=== PATIENT | male | born 1995 | race Caucasian/White ===

== ENCOUNTER 2018-07-05 18:06 | Emergency (ER) | payer OTHER, SELFPAY ==
[2018-07-05 18:17] VITALS: BP 122/77; PULSE 79; RESP 16; TEMP 36.4; O2SAT 99
--- NOTE | 2018-07-05 18:28 | W.ED.GENAD ---
Discharge Plan Disposition Patient Disposition: HOME Condition: Stable Discharge Details Chief Complaint: Orthopedic Clinical Impression: Strain of right rotator cuff capsule Primary Care Provider: Merlyn Blas ED Provider: Mc Ziegler Home Meds and New Rx's Prescriptions: New cyclobenzaprine 10 mg tablet 10 mg PO TID PRN (Reason: pain, severe) Qty: 20 RF: 0 Discontinued ketorolac 10 MG tablet 10 mg PO Q6H PRN MDD 4 Qty: 15 RF: 0 Discharge Instructions Instructions: Cyclobenzaprine (By mouth), Shoulder Sprain (ED) Additional Instructions: call orthopedics for an appointment as an outpatient take 1000mg tylenol and 600mg ibuprofen for pain as needed if you have fevers or severe worsening of pain return to the emergency department Referrals: Artur Davis MD [ [facility] STAFF PHYSICIAN] - Discharge Data Discharge Physician: Mc Ziegler Medical Decision Making MDM Narrative Medical decision making narrative: 23 yo male who denies chronic medical problems who comes in with right shoulder pain. He was at work 2 or so weeks ago and was lifting a heavy object off shelf above his head when it caused his arm to fall to the side and strain his shoulder. Was dx'd with shoulder/muscle strain at [facility] that day and since then hasn't been moving his shoulder much due to discomfort. Given his lack of visible deformity, symmetric with left shoulder and no significant trauma do not feel fracture or dislocation likely so don't feel xray indicated. I suspect given patient not being able to lift shoulder above 90 degrees in abduction that he likely has a rotator cuff injury vs adhesive capsulitis. Will have him f/u with orthopedics and return precautions given Differential Diagnosis rotator cuff injury, adhesive capsulitis HPI - General Adult General Mode of arrival: ambulatory. Date/Time Provider Initiated Documentation: 07/05/18 18:22. Limitations to Documentation: no limitations. Information obtained by: patient. History of Present Illness 23 year old M presents to the emergency department with the chief complaint of right shoulder pain, described as moderate, with intensity rated at 4. Quality is described as aching, and is localized to the right and upper extremity. Patient reports no radiation. Patient started experiencing this week(s) (2) and it has been constant. Rest improves symptom(s), Movement worsens symptoms . Patient notes no other symptoms.. Patient did receive the following treatments prior to arrival, NSAID Related Data Previous Rx's Medication Instructions Recorded cyclobenzaprine 10 mg PO TID PRN #20 tab 07/05/18 Allergies Allergy/AdvReac Type Severity Reaction Status Date / Time Penicillins Allergy Unverified 05/31/18 14:55 General Stated Complaint: Orthopedic CAITLIN: 4 Review of Systems Review of Systems All systems reviewed & are unremarkable except as noted in HPI and below Constitutional Denies chills, Denies fever(s) and Denies weakness Eyes Patient Denies loss of vision ENT Denies change in voice Cardiovascular Denies chest pain and Denies dyspnea Respiratory Denies dyspnea Gastrointestinal Denies abdominal pain, Denies nausea and Denies vomiting Genitourinary Denies dysuria Musculoskeletal Denies joint swelling Integumentary/Breasts Denies rash Neurologic Denies loss of vision and Denies weakness Psychiatric Denies depression Endocrine Denies cold intolerance and Denies heat intolerance Allergic/Immunologic Reports urticaria PFSH Social History Smoking/Tobacco Use Status: Former Tobacco Use Exam Const General: no acute distress Orientation: alert HENMT Head: normal to inspection Ears: external ears normal General nose exam: external nose normal Mouth: moist mucous membranes Eyes General: appearance normal, both eyes and all related structures Neck Neck: normal visual inspection Resp Effort & Inspection: normal respiratory effort and able to speak in complete sentences Cardio Rate: regular rate Skin General skin exam: no rashes or lesions noted Neuro General: alert and oriented x3 Extrem General: normal to inspection, normal capillary refill and other (right shoulder limited rom due to pain, no palpable or visible deformity and symmetrical with left shoulder, no significant pain with palpation, intact distal sensation and pulses) Psych Mental Status: mental status grossly normal Course Vital Signs Temperature 36.4 C L 07/05/18 18:17 Pulse 79 07/05/18 18:17 Respiratory Rate 16 07/05/18 18:17 Blood Pressure 122/77 07/05/18 18:17 Pulse Oximetry 99 07/05/18 18:17 Temperature 36.4 C L 07/05/18 18:17 Pulse 79 07/05/18 18:17 Respiratory Rate 16 07/05/18 18:17 Blood Pressure 122/77 07/05/18 18:17 Pulse Oximetry 99 07/05/18 18:17
--- NOTE | 2018-07-05 18:33 | ED.GENADUL_ITS ---
Discharge Plan Disposition Patient Disposition: HOME Condition: Stable Discharge Details Chief Complaint: Orthopedic Clinical Impression: Strain of right rotator cuff capsule Primary Care Provider: Merlyn Blas ED Provider: Mc Ziegler Home Meds and New Rx's Prescriptions: New cyclobenzaprine 10 mg tablet 10 mg PO TID PRN (Reason: pain, severe) Qty: 20 RF: 0 Discontinued ketorolac 10 MG tablet 10 mg PO Q6H PRN MDD 4 Qty: 15 RF: 0 Discharge Instructions Instructions: Cyclobenzaprine (By mouth), Shoulder Sprain (ED) Additional Instructions: call orthopedics for an appointment as an outpatient take 1000mg tylenol and 600mg ibuprofen for pain as needed if you have fevers or severe worsening of pain return to the emergency department Referrals: Artur Davis MD [ [facility] STAFF PHYSICIAN] - Discharge Data Discharge Physician: Mc Ziegler Medical Decision Making MDM Narrative Medical decision making narrative: 23 yo male who denies chronic medical problems who comes in with right shoulder pain. He was at work 2 or so weeks ago and was lifting a heavy object off shelf above his head when it caused his arm to fall to the side and strain his shoulder. Was dx'd with shoulder/muscle strain at [facility] that day and since then hasn't been moving his shoulder much due to discomfort. Given his lack of visible deformity , symmetric with left shoulder and no significant trauma do not feel fracture or dislocation likely so don't feel xray indicated. I suspect given patient not being able to lift shoulder above 90 degrees in abduction that he likely has a rotator cuff injury vs adhesive capsulitis. Will have him f/u with orthopedics and return precautions given Differential Diagnosis rotator cuff injury, adhesive capsulitis HPI - General Adult General Mode of arrival: ambulatory . Date/Time Provider Initiated Documentation: 07/05/18 18:22 . Limitations to Documentation: no limitations . Information obtained by: patient . History of Present Illness 23 year old M presents to the emergency department with the chief complaint of right shoulder pain, described as moderate, with intensity rated at 4. Quality is described as aching, and is localized to the right and upper extremity. Patient reports no radiation. Patient started experiencing this week(s) (2) and it has been constant. Rest improves symptom(s), Movement worsens symptoms . Patient notes no other symptoms.. Patient did receive the following treatments prior to arrival, NSAID Related Data Previous Rx's Medication Instructions Recorded cyclobenzaprine 10 mg PO TID PRN #20 tab 07/05/18 Allergies Allergy/AdvReac Type Severity Reaction Status Date / Time Penicillins Allergy Unverified 05/31/18 14:55 General Stated Complaint: Orthopedic CAITLIN: 4 Review of Systems Review of Systems All systems reviewed & are unremarkable except as noted in HPI and below Constitutional Denies chills, Denies fever(s) and Denies weakness Eyes Patient Denies loss of vision ENT Denies change in voice Cardiovascular Denies chest pain and Denies dyspnea Respiratory Denies dyspnea Gastrointestinal Denies abdominal pain, Denies nausea and Denies vomiting Genitourinary Denies dysuria Musculoskeletal Denies joint swelling Integumentary/Breasts Denies rash Neurologic Denies loss of vision and Denies weakness Psychiatric Denies depression Endocrine Denies cold intolerance and Denies heat intolerance Allergic/Immunologic Reports urticaria PFSH Social History Smoking/Tobacco Use Status: Former Tobacco Use Exam Const General: no acute distress Orientation: alert HENMT Head: normal to inspection Ears: external ears normal General nose exam: external nose normal Mouth: moist mucous membranes Eyes General: appearance normal, both eyes and all related structures Neck Neck: normal visual inspection Resp Effort & Inspection: normal respiratory effort and able to speak in complete sentences Cardio Rate: regular rate Skin General skin exam: no rashes or lesions noted Neuro General: alert and oriented x3 Extrem General: normal to inspection, normal capillary refill and other (right shoulder limited rom due to pain, no palpable or visible deformity and symmetrical with left shoulder, no significant pain with palpation, intact distal sensation and pulses) Psych Mental Status: mental status grossly normal Course Vital Signs Temperature 36.4 C L 07/05/18 18:17 Pulse 79 07/05/18 18:17 Respiratory Rate 16 07/05/18 18:17 Blood Pressure 122/77 07/05/18 18:17 Pulse Oximetry 99 07/05/18 18:17 Temperature 36.4 C L 07/05/18 18:17 Pulse 79 07/05/18 18:17 Respiratory Rate 16 07/05/18 18:17 Blood Pressure 122/77 07/05/18 18:17 Pulse Oximetry 99 07/05/18 18:17
[2018-07-05 18:35] VITALS: BP 122/77; PULSE 79; RESP 16; TEMP 36.4; O2SAT 99
== END 2018-07-05 18:39 | disposition home or self-care (01) ==
PROVIDERS: Emergency Provider Emergency Medicine; PCP Family Medicine
DX: S46.011A Strain of muscle(s) and tendon(s) of the rotator cuff of right shoulder, initial encounter (principal); X50.0XXA Overexertion from strenuous movement or load, initial encounter; Y99.0 Civilian activity done for income or pay
CPT/HCPCS: 99283; L3650

== ENCOUNTER 2019-06-12 06:32 | Emergency (ER) | payer SELFPAY ==
[2019-06-12] VITALS (22 sets, daily range): BP systolic 108–136; BP diastolic 62–86; PULSE 48–63; RESP 16–22; TEMP 36.8; O2SAT 96–99
[2019-06-12] MEDS: Ketorolac 30 MG/ML VIAL IVP (06:50)
[2019-06-12] MEDS: Ondansetron 4 MG/2 ML VIAL IVP (06:50)
[2019-06-12] MEDS: HYDROmorphone 2 MG/ML VIAL 1 MG IVP (07:14)
--- NOTE | 2019-06-12 07:21 | W.ED.GENAD ---
Discharge Plan Disposition Patient Disposition: HOME Condition: Improving Discharge Details Chief Complaint: FlankPain Clinical Impression: Nephrolithiasis Primary Care Provider: Merlyn Blas ED Provider: Nadja Dupont Home Meds and New Rx's Prescriptions: New tamsulosin [Flomax] 0.4 mg capsule 0.4 mg PO DAILY Qty: 7 RF: 0 oxycodone 5 mg tablet 5 mg PO Q6H PRN (Reason: pain) Qty: 10 RF: 0 promethazine 25 mg tablet 25 mg PO QID PRN (Reason: nausea and vomiting) Qty: 10 RF: 0 Discharge Instructions Instructions: Kidney Stones (ED) Additional Instructions: Continue to encourage hydration. Tylenol and ibuprofen as needed for discomfort. Please take Flomax as prescribed to help promote passage of stone. You may take the promethazine as prescribed to help with nausea. Please augment the Tylenol and ibuprofen oxycodone if this is insufficient in relieving her discomfort. Please do not drive while taking these medications. If you develop fever/chills, increased pain, difficulty urinating or other new/worsening symptoms please seek care urgently once again. Please call urology to schedule follow-up appointment. Stand Alone Forms: Work Release Referrals: Salvador Erickson MD [ [facility] STAFF PHYSICIAN] - Merlyn Blas MD [Primary Care Provider] - Discharge Data Discharge Date/Time-TO BE ENTERED AT DEPARTURE: 06/12/19 10:59 Medical Decision Making Patient is a 24-year-old male presenting today with chief complaint of right flank pain. He reports that he has had kidney stones historically and feels that this is a recurrence of this. Last was treated for nephrolithiasis in February of last year. Patient has been seen by Dr. Erickson. He denies any fevers or chills. No recent dietary changes. Does report that he is getting next week and has been under increased stress and believes that he has had diminished fluid intake. He reports that he has had no penile discharge. Does not have any pain in his testicles. Denies any change in bowel habits. Is not noted hematuria. States the pain came on today after urinating when he first woke this morning. No recent travel. No recent antibiotics. No previous abdominal surgeries. On exam, he appears uncomfortable, is writhing and holding his right flank. He has no abdominal pain elicited with palpation. He does have severe right CVA tenderness. Plan to obtain renal ultrasound. Patient given IV Toradol with only minimal relief, this is augmented with Dilaudid. With the patient's history, will give first dose of Flomax as well. US reviewed, slight right hydronephrosis. They see a intrarenal stone. Unable to visual stone in the ureter. Urinary jet on the left, none on the right. Radiologist recommended f/u with urologist. UA concerning for RBC. Negative nitrite, negative leukocyte esterase. Will consult with Dr. Erickson. Consulted with Dr. Erickson, discussed the CT. He advised holding off at this time, treat per typical. Advised that if he is still in discomfort next week, he call the office for appointment. Discussed this plan with the patient. I encouraged hydration. He is hydrating well here. The Phenergan seemed to have been of most benefit for the patient. We will prescribe this patient to go home with. Also continue with him on Flomax. Encouraged to continue with Tylenol and ibuprofen as needed for discomfort. May augment this with oxycodone as prescribed. This is worked well for him historically. He was given strict return precautions, particular signs of infection. He will not drive while taking the oxycodone. Work note was given at his request. He will contact urology to schedule follow-up appointment. All his questions and concerns were addressed and he is in agreement with this plan. HPI General Mode of arrival: ambulatory. Date/Time Provider Initiated Documentation: 06/12/19 07:14. Limitations to Documentation: no limitations. Information obtained by: patient and RN notes reviewed. History of Present Illness 24 year old M presents to the emergency department with the chief complaint of right flank pain, described as severe and similar to prior episodes, Quality is described as stabbing, and is localized to the back. Patient abdomen. Patient started experiencing this hour(s) (1) and it has been constant. No relieving factors improve symptom(s), No exacerbating factors reported . Patient notes loss of appetite and nausea/vomiting; denies chest pain, cough, diaphoresis, fever/chills, headaches, rash, shortness of breath and weakness. Patient did receive the following treatments prior to arrival, none Related Data Home Medications Medication Instructions Recorded Confirmed oxycodone 5 mg PO Q6H PRN #10 tab 06/12/19 promethazine 25 mg PO QID PRN #10 tab 06/12/19 tamsulosin [Flomax] 0.4 mg PO DAILY #7 cap 06/12/19 Previous Rx's Medication Instructions Recorded oxycodone 5 mg PO Q6H PRN #10 tab 06/12/19 promethazine 25 mg PO QID PRN #10 tab 06/12/19 tamsulosin [Flomax] 0.4 mg PO DAILY #7 cap 06/12/19 Allergies Allergy/AdvReac Type Severity Reaction Status Date / Time Penicillins Allergy Unverified 06/12/19 06:39 General Stated Complaint: FlankPain CAITLIN: 3 Review of Systems Constitutional Reports as per HPI, Denies chills, Denies fatigue, Denies fever(s) and Denies headache(s) ENT Denies headache(s) Cardiovascular Reports as per HPI, Denies chest pain and Denies dyspnea Respiratory Reports as per HPI, Denies cough and Denies dyspnea Gastrointestinal Reports as per HPI Genitourinary Reports as per HPI, Denies genital lesions, Denies genital pain, Reports flank pain, Denies urinary frequency, Denies urinary hesitancy, Denies urinary incontinence and Denies urinary urgency Musculoskeletal Reports as per HPI and Denies back pain Integumentary/Breasts Reports as per HPI and Denies rash Neurologic Reports as per HPI and Denies headache(s) Endocrine Denies fatigue [facility] Social History Smoking/Tobacco Use Status: Former Tobacco Use Drug use: Never Do you feel safe at home: Yes Do you feel safe in your relationship?: Yes Exam Const General: cooperative, healthy appearing, uncomfortable (Patient appears uncomfortable, holding right flank), no acute distress and well developed Nutritional Appearance: average body habitus and well nourished Orientation: alert and awake HENMT Head: normal to inspection Mouth: moist mucous membranes Resp Effort & Inspection: normal respiratory effort, able to speak in complete sentences and no respiratory distress Auscultation: clear to auscultation bilaterally, no rales, no rhonchi and no wheezes Cardio Rate: regular rate Rhythm: regular rhythm Heart Sounds: S1 normal and S2 normal GI Inspection: normal to inspection, no edema and non-distended Palpation: soft, no hepatosplenomegaly, not firm, no guarding, not rigid and nontender Percussion: normal to percussion Auscultation: normal bowel sounds Back/Spine/Pelvis Back: CVA tenderness (Right side) Skin General skin exam: no rashes or lesions noted Trauma: no lacerations or abrasions Neuro General: alert and awake Cognition: normal cognition Speech: speech normal Gait: normal gait Psych Appearance: grossly normal and well kempt Mental Status: mental status grossly normal Speech and Movement: speech and movement normal Course Vital Signs Temperature 36.8 C 06/12/19 06:36 Pulse 57 L 06/12/19 06:36 Respiratory Rate 22 06/12/19 06:36 Blood Pressure 133/84 06/12/19 06:36 Pulse Oximetry 98 06/12/19 06:36 Temperature 36.8 C 06/12/19 06:36 Temperature Source Tympanic 06/12/19 06:36 Pulse 57 L 06/12/19 06:36 Respiratory Rate 22 06/12/19 06:36 Respiratory Effort 06/12/19 06:40 Blood Pressure 133/84 06/12/19 06:36 Pulse Oximetry 98 06/12/19 06:36 Pain Level 9 06/12/19 06:40
[2019-06-12 07:32] LABS: Abs Immature Grans 0.01 k/cumm (0.0-0.09); Absolute Basophil Count 0.04 k/cumm (0.0-0.2); Absolute Eosinophil Count 0.18 k/cumm (0.0-0.7); Absolute Monocyte Count 0.48 k/cumm (0.11-0.7); Absolute Neutrophil Count 3.01 k/cumm (1.2-6.7); Basophils % 0.6; Eosinophils % 2.7; HCT 45.4 % (40.0-50.0); HGB 15.3 g/dL (13.5-17.5); Immature Grans % 0.1; Lymphocytes % 44.6; Mean Corp. HGB Concentration 33.7 g/dL (32.0-36.0); Mean Corpuscular Hemoglobin 30.5 pg (27.0-33.0); Mean Corpuscular Volume 90.6 fL (80-95); Mean Platelet Volume 11.2 fL (8.0-11.0); Monocytes % 7.1; Neutrophils % 44.9; Platelet Count 314 x1000/uL (130-400); RBC 5.01 m/cumm (4.50-6.00); RBC Distribution Width 12.6 % (11.8-14.1); White Blood Cell Count 6.72 k/cumm (4.4-10.8)
[2019-06-12] MEDS: Tamsulosin 0.4 MG CAPCR PO (07:37)
[2019-06-12] MEDS: Normal Saline 1,000 ML 1000 ML IV (07:37)
[2019-06-12 07:47] LABS: ALT 21 U/L (12-78); AST 10 U/L (15-37); Albumin 4.6 g/dL (3.4-5.0); Alkaline Phosphatase 80 U/L (46-116); Anion Gap 9.6 mmol/L (3-11); BUN 14 mg/dL (7-18); Bilirubin, Total 0.5 mg/dL (0.2-1.0); CO2 30.4 mmol/L (21.0-32.0); CREATININE 1.13 mg/dL (0.70-1.30); Calcium 9.2 mg/dL (8.5-10.1); Chloride 104 mmol/L (98-107); Glucose 103 mg/dL (70-100); Potassium 3.6 mmol/L (3.5-5.1); Sodium 144 mmol/L (136-145); Total Protein 7.7 g/dL (6.4-8.2)
--- NOTE | 2019-06-12 08:22 | DI.US_ITS ---
SYMPTOM/DIAGNOSIS: H/O STONES, RT FLANK PAIN RENAL ULTRASOUND: 06/12 The kidneys are normal in size and shape. There is an apparent intrarenal calculus on the right in the upper pole collecting system. There is suggestion of mild generalized right hydronephrosis. No right ureteral jet identified in the bladder and the findings raise the possibility of an obstructing ureteral stone as well. Left kidney shows normal collecting system, no left nephrolithiasis seen. Urinary bladder unremarkable in appearance. 30 cc in the urinary bladder, the patient was unable to void further. CONCLUSION: 1. Right nephrolithiasis 2. Question mild right hydronephrosis, low grade right ureteral obstruction may be present. Appropriate clinical follow up recommended and if the findings to not resolve additional evaluation with CT urogram would be suggested.
[2019-06-12] MEDS: HYDROmorphone 2 MG/ML VIAL 0.25 MG IVP (09:08)
[2019-06-12 09:33] LABS: Bilirubin Negative (Negative); Blood Moderate (Negative); Clarity Clear (Clear); Glucose Negative (Negative); Ketones Negative (Negative); Leukocyte Esterase Negative (Negative); Nitrite Negative (Negative); Urobilinogen 0.2 EU/dL (Up TO 0.2); pH 7.5 (5-8)
[2019-06-12 09:54] LABS: Bacteria Rare HPF (Negative); C & S Indicated? No; Casts Negative LPF (Negative); Crystals Negative HPF (Negative); Epithelial Cells Rare HPF (Negative); Mucus Moderate (Negative); RBC >50 (0-2); WBC 0-2 HPF (0-5)
== END 2019-06-12 10:59 | disposition home or self-care (01) ==
PROVIDERS: Emergency Provider Physician Assistant; PCP Family Medicine
DX: N20.0 Calculus of kidney (principal)
CPT/HCPCS: 36415; 76770; 80053; 96361; 96365; 96375; 96376; 99284; 81003; 81015; 85025; J1885; J2405

== ENCOUNTER 2019-09-21 08:24 | Emergency (ER) | payer SELFPAY ==
[2019-09-21 08:27] VITALS: BP 129/68; PULSE 72; RESP 14; TEMP 36.4; O2SAT 99
--- NOTE | 2019-09-21 08:51 | W.ED.GENAD ---
Discharge Plan Disposition Patient Disposition: HOME Condition: Good Discharge Details Chief Complaint: EarProblem Clinical Impression: TMJ (temporomandibular joint disorder) Primary Care Provider: Merlyn Blas ED Provider: Martha Muller Home Meds and New Rx's Prescriptions: New cyclobenzaprine 10 mg tablet 10 mg PO TID PRN (Reason: muscle spasm) Qty: 10 RF: 0 No Action ibuprofen 200 mg Tablet 400 mg PO Q6H PRNRF: 0 Discharge Instructions Instructions: Temporomandibular Disorder (ED) Additional Instructions: Ice or heat to the joint as discussed. Tylenol or ibuprofen for discomfort. If taking ibuprofen be sure to take with food in your stomach Avoid chewing as discussed, specifically try to have smoothies or eat soft foods for the next few days. Avoid caffeine Use muscle relaxant as prescribed. Do not drive, drink, work while taking this medication and will cause drowsiness. Consider [id number] dental guard for TMJ Follow-up with dentist or oral surgeon for any persistence of pain. Return for fever, chills, pain behind the ear, swelling, dental pain, ill feeling or signs of infection as discussed or for worsening symptoms as discussed. Medical Decision Making 24-year-old patient who presents with left ear pain has a history of jaw fracture several years ago and a notable click since that time. Patient is complaining of left ear pain without specific injury or trauma. Patient reports no ill feeling whatsoever no nasal congestion, sore throat or cough. Patient reports ear pain woke him at approximately 2 in the morning was very uncomfortable because difficulty sleeping he tried ibuprofen without relief. Patient points to the TMJ on the left as site of pain. Patient also indicates pain around the ear. On exam patient has notable left TMJ tenderness and minimal posterior mastoid tenderness but no associated bogginess or erythema. Patient's ear exam is normal. He has no TM injection or bulging. No effusion. No external canal pain with tragus tug or drainage or erythema. I am concerned slightly with patient's mild mastoid tenderness however given lack of infectious symptoms, erythema or bogginess on exam I have recommended the patient closely observe for any increase in pain posterior to the ear. However lacking infectious symptoms at this time I feel patient's likely experiencing TMJ syndrome. Patient clearly has reproducible pain with palpation of the TM joint and with range of motion of the jaw. Given patient's previous history of trauma I feel this is the most likely source of his pain. Otherwise patient has no pharyngeal erythema. There are a few notable very small scant lymph nodes in the cervical chain which may or may not be related. We discussed more significant imaging studies however at this time patient feels comfortable with conservative treatments, muscle relaxant and focused care managing TMJ and if not improving or for any infectious or increase in symptoms he will return for further evaluation. I have encouraged follow-up with dentist. Avoidance of chewing discussed. Mouthguard discussed. The patient was stable and requested discharge. Prior to discharge, my usual and customary return precautions were reviewed with the patient - this included follow-up instructions and reasons to return to the Emergency Department if conditions worsens, does not improve as expected, or other new concerns arise. HPI General Date/Time Provider Initiated Documentation: 09/21/19 08:25. HPI Narrative: Is a 24-year-old patient who presents for complaints of left ear pain. Patient denies any ill feeling. Patient denies nasal congestion, sore throat or coughing. Patient reports he awoke at approximately 2 in the morning with ear pain. He took ibuprofen with no significant relief of pain. Patient reports difficulty sleeping due to pain. Patient denies any drainage from the ear. Patient points to the area of the TMJ as maximum site of pain. Patient reports pain is worse with jaw movement. Patient does report a typical click of his jaw as he does have a history of jaw fracture in the past. Patient unsure if he clenches teeth. Patient denies sore throat or voice change. Patient does have a history of dental pain but denies dental pain at this time. Pain worse with palpation and range of motion of jaw. Patient reports pain feels somewhat spastic as it will come in waves then mild relief. Patient reports pain lasting greater than seconds. Related Data Home Medications Medication Instructions Recorded Confirmed cyclobenzaprine 10 mg PO TID PRN #10 tab 09/21/19 ibuprofen 400 mg PO Q6H PRN 09/21/19 09/21/19 Previous Rx's Medication Instructions Recorded cyclobenzaprine 10 mg PO TID PRN #10 tab 09/21/19 Allergies Allergy/AdvReac Type Severity Reaction Status Date / Time Penicillins Allergy Unverified 09/21/19 08:29 General Stated Complaint: EarProblem CAITLIN: 4 Review of Systems All systems reviewed & are unremarkable except as noted in HPI and below Constitutional Constitutional: Denies chills, Denies fatigue, Denies fever(s), Denies headache(s) and Denies malaise ENT Ears, Nose, Mouth, and Throat: Denies change in voice, Denies dental pain, Denies dizziness, Denies ear discharge, Reports otalgia, Reports facial pain, Denies headache(s), Denies nasal congestion, Denies nasal discharge, Denies nasal obstruction, Denies post nasal drip, Denies sinus pain, Denies sinus pressure and Denies sore throat Respiratory Respiratory: Denies cough Neurologic Neurologic: Denies dizziness and Denies headache(s) Endocrine Endocrine: Denies fatigue [facility] Social History Smoking/Tobacco Use Status: Former Tobacco Use Alcohol Intake: current Alcohol Intake frequency: a few times a month Drug use: Never Substance use type: does not use Do you feel safe at home: Yes Do you feel safe in your relationship?: Yes Exam Narrative Exam Narrative: CONST: Healthy appearing patient, in no acute distress. Well hydrated. Alert and alert. HENMT: Head nomocephalic, normal to inspection. Atraumatic. Hearing grossly normal. Patient has normal-appearing TMs bilaterally. Normal-appearing external canals bilaterally. Patient has minimal mastoid tenderness behind the left ear. No significant erythema or bogginess. Patient has significant pain noted to the left TMJ. Pain is worse with range of motion of the jaw. Pain increased after palpation of the TMJ. Patient has notable posterior left lower dental fracture with no associated sign of surrounding erythema or gum tenderness. Patient reports this is chronic. EYES: General normal appearance. Alignment normal. Eyelids normal. Conjunctiva normal. NECK: Normal visual inspection. FROM. Trachea midline. No Midline tenderness. Scant cervical lymphadenopathy present very small lymph nodes are notable. CHEST: Normal insepection of the chest. RESP: Normal respiratory effort. Speaking full sentences. No cough. No audible wheezing. No retractions. CARDIO: No JVD. Normal rate and rhythm. SKIN: Normal. Dry. No rashes. NEURO: Alert and awake. Speech clear. PSYCH: Normal affect. Cooperative. Course Vital Signs Vital signs: Vital Signs Temperature 36.4 C L 09/21/19 08:27 Pulse 72 11/24/19 08:27 Respiratory Rate 14 09/21/19 08:27 Blood Pressure 129/68 09/21/19 08:27 Pulse Oximetry 99 09/21/19 08:27 Temperature 36.4 C L 09/21/19 08:27 Temperature Source Temporal Artery Scan 09/21/19 08:27 Pulse 72 09/21/19 08:27 Respiratory Rate 14 09/21/19 08:27 Respiratory Effort Non-Labored 09/21/19 08:28 Blood Pressure 129/68 09/21/19 08:27 Blood Pressure Position Sitting 09/21/19 08:27 Pulse Oximetry 99 09/21/19 08:27 Oxygen Delivery Method Room Air 09/21/19 08:27 Oxygen Flow Rate 0 09/21/19 08:27 Pain Level 4 09/21/19 08:27
[2019-09-21 08:54] VITALS: BP 129/68; PULSE 72; RESP 14; TEMP 36.4; O2SAT 99
== END 2019-09-21 08:57 | disposition home or self-care (01) ==
PROVIDERS: Emergency Provider Physician Assistant; PCP Family Medicine
DX: M26.609 Unspecified temporomandibular joint disorder, unspecified side (principal); Z53.29 Procedure and treatment not carried out because of patient's decision for other reasons
CPT/HCPCS: 99283

== ENCOUNTER 2019-12-17 21:39 | Emergency (ER) | payer SELFPAY ==
[2019-12-17 21:42] VITALS: BP 128/70; PULSE 98; RESP 20; TEMP 38.2; O2SAT 95
--- NOTE | 2019-12-17 21:55 | ED.GENADUL_ITS ---
Discharge Plan Disposition Patient Disposition: HOME Condition: Improving Discharge Details Chief Complaint: Fever Clinical Impression: Influenza B Primary Care Provider: Merlyn Blas ED Provider: Hernando Leos Home Meds and New Rx's Prescriptions: Continued ibuprofen 200 mg Tablet 400 mg PO Q6H PRNRF: 0 acetaminophen 500 mg Tablet 500 mg PO PRN PRNRF: 0 Discharge Instructions Instructions: Influenza (ED) Additional Instructions: May continue ibuprofen 600 to 800 mg every 6-8 hours as needed for fever in addition to the use of Tylenol 650 to 1000 mg every 4-6 hours. Small, frequent sips of fluids to maintain hydration. Please follow-up with regular doctor if not improving in 3 to 5 days time. Return to the ER for any acute concerns. Medical Decision Making 24-year-old male presents from home with 7 to 10 days of cough, congestion, fever, chills, left ear pain and sinus pressure with headache. Decreased p.o. intake but no significant vomiting. He denies any recent travel or known sick contacts. He arrives a temp 38.2, pulse 98, normal oxygenation. Differential diagnosis would include influenza, pneumonia, bronchitis, sinusitis. IV placed, patient given fluid bolus, small dose of ketorolac. Referred for CT scan of sinuses, chest x-ray, flu swab, screening blood work. Patient is positive for influenza B. CT scan of the head without evidence of sinus infection. His chest x-ray is without focal consolidation. Labs are otherwise reassuring including CBC and chemistries. Improved following fluids and parenteral medications. Not a candidate for Tamiflu. Discussed with him anticipated course of resolution. Patient is stable for outpatient management. HPI General Mode of arrival: ambulatory . Date/Time Provider Initiated Documentation: 12/17/19 21:42 . Limitations to Documentation: no limitations . Information obtained by: patient . History of Present Illness 24 year old M presents to the emergency department with the chief complaint of 24-year-old male with 7 to 10 days of fever, cough, left head and ear pain, described as moderate, Quality is described as constant, and is localized to the head and chest. Patient reports no radiation. Patient started experiencing this day(s) and it has been constant. No relieving factors improve symptom(s), No exacerbating factors reported . Patient notes cough, fever/chills, headaches, loss of appetite and malaise; denies syncope. Patient did receive the following treatments prior to arrival, NSAID and other (Tylenol) Related Data Home Medications Medication Instructions Recorded Confirmed ibuprofen 400 mg PO Q6H PRN 09/21/19 12/17/19 acetaminophen 500 mg PO PRN PRN 12/17/19 12/17/19 Allergies Allergy/AdvReac Type Severity Reaction Status Date / Time Penicillins Allergy Unverified 12/17/19 21:44 General Stated Complaint: Fever CAITLIN: 3 Review of Systems Narrative: 6 systems reviewed and otherwise negative. No travel. No known specific sick contacts. No flank pain. [facility] Medical History Kidney stones (Chronic) Social History Smoking/Tobacco Use Status: Current every day Tobacco Type: cigarettes Alcohol Intake: current Alcohol Intake frequency: a few times a month Drug use: Daily Substance use type: marijuana Do you feel safe at home: Yes Do you feel safe in your relationship?: Yes Exam Narrative Exam Narrative: GEN: awake, alert, oriented 3. Pleasant, well groomed, interactive. HEAD: Normocephalic, atraumatic ENT: Mucous membranes moist, oropharynx unremarkable, tympanic membranes clear bilaterally external ear exam unremarkable. Left frontal and maxillary sinus tender to percussion EYES: PERRL, EOMI NECK: Full ROM, no ESPERANZA, no menigismus CHEST/RESP: Nontender, clear to auscultation bilateral, no wheeze/rhonchi/rales CARDIOVASCULAR: RRR, no murmur, rub ila. 2+ Rad pulse bilateral ABDOMEN: Soft, nontender, no mass. +Bowel sounds EXT: Full ROM, no edema, no rash Neuro: Grossly normal neurologic exam, conversant, interactive. Psych: Speech fluent, thoughts congruent, affect normal Course Vital Signs Vital signs: Vital Signs Temperature 38.2 C H 12/17/19 21:42 Pulse 98 H 12/17/19 21:42 Respiratory Rate 20 12/17/19 21:42 Blood Pressure 128/70 12/17/19 21:42 Pulse Oximetry 95 12/17/19 21:42 Temperature 38.2 C H 12/17/19 21:42 Temperature Source Temporal Artery Scan 12/17/19 21:42 Pulse 98 H 12/17/19 21:42 Respiratory Rate 20 12/17/19 21:42 Respiratory Effort Non-Labored 12/17/19 21:45 Blood Pressure 128/70 12/17/19 21:42 Blood Pressure Position Supine 12/17/19 21:42 Pulse Oximetry 95 12/17/19 21:42 Oxygen Delivery Method Room Air 12/17/19 21:42 Oxygen Flow Rate 0 12/17/19 21:42 Pain Level 8 12/17/19 21:42 Lab/Test Results Lab/Test Results: 12/17/19 21:55 Nasopharynx Influenza Types A,B Antigen - Pending
[2019-12-17] MEDS: Normal Saline 1,000 ML 1000 ML IV (22:01)
[2019-12-17] MEDS: Ketorolac 15 MG/ML VIAL 7.5 MG IVP (22:01)
[2019-12-17] MEDS: Normal Saline Flush 10 ML SYR IVP (22:02)
[2019-12-17 22:07] LABS: Absolute Basophil Count 0.01 k/cumm (0.0-0.2); Absolute Eosinophil Count 0.04 k/cumm (0.0-0.7); Absolute Lymphocyte Count 0.65 k/cumm (1.2-3.4); Absolute Neutrophil Count 5.09 k/cumm (1.2-6.7); Basophils % 0.2; Eosinophils % 0.6; HGB 13.7 g/dL (13.5-17.5); Lymphocytes % 10.2; Mean Corp. HGB Concentration 33.4 g/dL (32.0-36.0); Mean Corpuscular Hemoglobin 30.4 pg (27.0-33.0); Mean Corpuscular Volume 90.9 fL (80-95); Mean Platelet Volume 10.3 fL (8.0-11.0); Monocytes % 9.4; Neutrophils % 79.6; Platelet Count 246 x1000/uL (130-400); RBC 4.51 m/cumm (4.50-6.00); RBC Distribution Width 12.3 % (11.8-14.1); White Blood Cell Count 6.39 k/cumm (4.4-10.8)
[2019-12-17 22:22] LABS: ALT 26 U/L (16-63); AST 22 U/L (15-37); Albumin 4.2 g/dL (3.4-5.0); Alkaline Phosphatase 71 U/L (46-116); Anion Gap 10.3 mmol/L (3-11); BUN 8 mg/dL (7-18); Bilirubin, Total 0.3 mg/dL (0.2-1.0); CO2 26.7 mmol/L (21.0-32.0); CREATININE 0.97 mg/dL (0.70-1.30); Calcium 8.6 mg/dL (8.5-10.1); Chloride 104 mmol/L (98-107); Glucose 106 mg/dL (74-106); Magnesium 1.7 mg/dL (1.8-2.4); Potassium 3.5 mmol/L (3.5-5.1); Sodium 141 mmol/L (136-145); Total Protein 7.3 g/dL (6.4-8.2)
--- NOTE | 2019-12-17 22:22 | DI.RAD_ITS ---
EXAM: XR CHEST 2V PA LATERAL CLINICAL HISTORY: Cough, fever TECHNIQUE: 2D digital imaging was performed. COMPARISON: ABD FLAT UPRIGHT PA CHEST from 01/22/2014 FINDINGS: The cardiac and mediastinal contours have a normal appearance. The lungs are well inflated and clear . No infiltrate, effusion or pneumothorax is seen. No spine or rib fracture is identified. IMPRESSION: Negative chest x-ray.
--- NOTE | 2019-12-17 22:30 | DI.CT_ITS ---
EXAM: CT SINUS WO CLINICAL HISTORY: L pain, fever TECHNIQUE: Noncontrast COMPARISON: No exams were available for comparison FINDINGS: The sinuses are clear throughout. The orbits are unremarkable. There are no areas of bony destruct ion or evidence of a fracture. The visualized portions of the brain are unremarkable. Mastoid air c ells appear clear. IMPRESSION: Negative sinus CT. No evidence of acute or chronic sinusitis.
--- NOTE | 2019-12-17 22:44 | DI.VRAD_ITS ---
PROCEDURE INFORMATION: Exam: XR Chest, 2 Views Exam date and time: 12/17/2019 10:20 PM Age: 24 years old Clinical indication: Cough and fever TECHNIQUE: Imaging protocol: XR of the chest Views: 2 views. COMPARISON: CR ABD FLAT UPRIGHT PA CHEST 22/01/2014 16:33 FINDINGS: Lungs: The findings suggest prior granulomatous disease or fungal infection. Pleural space: Unremarkable. No pleural effusion. No pneumothorax. Heart/Mediastinum: Similar to the prior study there appear to be punctate calcifications in the right lung, right hilum, and left hilum. Bones/joints: Unremarkable for patient's age. IMPRESSION: Scattered punctate calcifications in the right lung and the right and left hilum consistent with prior granulomatous disease or prior fungal infection. Dictated and Authenticated by: Di Lux MD. Ordering:DANIELLE Villagomez MD
--- NOTE | 2019-12-17 22:48 | DI.VRAD_ITS ---
PROCEDURE INFORMATION: Exam: CT Maxillofacial Without Contrast, Sinus Exam date and time: 12/17/2019 9:55 PM Age: 24 years old Clinical indication: Face pain; Additional info: Left sinus pain, fever TECHNIQUE: Imaging protocol: CT Maxillofacial without contrast. Focus on the sinuses. Radiation optimization: All CT scans at this facility use at least one of these dose optimization techniques: automated exposure control; mA and/or kV adjustment per patient size (includes targeted exams where dose is matched to clinical indication); or iterative reconstruction. COMPARISON: No relevant prior studies available. FINDINGS: Frontal sinuses: Normal. No air-fluid levels. Ethmoid air cells: Normal. No air-fluid levels. Sphenoid sinuses: Normal. No air-fluid levels. Maxillary sinuses: Normal. No air-fluid levels. Ostiomeatal units are patent. Orbits: Orbits are normal. Globes are unremarkable. Nasal cavity/Septum: Unremarkable. Soft tissues: Unremarkable. Bones/joints: Unremarkable. IMPRESSION: Unremarkable sinuses. Dictated and Authenticated by: Di Lux MD. Ordering:DANIELLE Villagomez MD
[2019-12-17 23:10] VITALS: BP 121/70; PULSE 74; RESP 16; TEMP 37.2; O2SAT 97
[2019-12-17] MEDS: Ondansetron O.D.T. 4 MG TABEF, 3 TABS/BTL PO (23:30)
[2019-12-17] MEDS: guaiFENesin/D-METHORPHAN HB 5 ML CUP 20 ML PO (23:30)
[2019-12-17 23:31] VITALS: BP 121/70; PULSE 74; RESP 16; TEMP 37.2; O2SAT 97
== END 2019-12-17 23:20 | disposition home or self-care (01) ==
PROVIDERS: Emergency Provider Emergency Medicine; PCP Family Medicine
DX: J10.1 Influenza due to other identified influenza virus with other respiratory manifestations (principal)
CPT/HCPCS: 36415; 80053; 87449; 96361; 96374; 99284; 70486; 71046; 83735; 85025; J1885

== ENCOUNTER 2020-08-11 14:49 | Outpatient (REF) | payer SELFPAY ==
[2020-08-16 15:27] LABS: Patient Race White; SARS-CoV-2 RNA Undetected (Undetected); SARS-CoV-2 Specimen Source Nasal
== END 2020-08-11 15:09 ==
LOC: NCHCN 14:49
PROVIDERS: PCP Family Medicine; Visit Provider Nurse Practitioner Family
DX: Z20.828 Contact with and (suspected) exposure to other viral communicable diseases (principal)
CPT/HCPCS: U0003

== ENCOUNTER 2020-12-07 11:20 | Emergency (ER) | payer SELFPAY ==
[2020-12-07 11:24] VITALS: BP 138/77; PULSE 72; RESP 20; TEMP 36.8; O2SAT 98
--- NOTE | 2020-12-07 11:25 | ED.GENADUL_ITS ---
Discharge Plan Disposition Patient Disposition: HOME Condition: Improving Discharge Details Clinical Impression: Lumbar strain, Acute right flank pain Primary Care Provider: Merlyn Blas ED Provider: Salma Zhang Home Meds and New Rx's Prescriptions: Continued ibuprofen 200 mg Tablet 400 mg PO Q6H PRNRF: 0 acetaminophen 500 mg Tablet 500 mg PO PRN PRNRF: 0 Discharge Instructions Instructions: Low Back Strain (ED), Flank Pain (ED) Additional Instructions: Alternate ice and heat to the affected area(s) several times daily for 20 m inutes at a time. Alternate tylenol and motrin as needed and directed for pain. Follow-up with your primary care doctor in 1 week. Return to the emergency department with any worsening or new concerning symptoms such as fever, persistent vomiting or any worsening pain. Stand Alone Forms: Work Release Discharge Data Discharge Date/Time-TO BE ENTERED AT DEPARTURE: 12/07/20 14:02 Discharge Physician: Salma Zhang Medical Decision Making 25-year-old male with a history of kidney stones presents for right flank pain since yesterday, worse today after sneezing. Vitals within normal limits. Patient appears uncomfortable laying on his right side on the stretcher. He has localized tenderness to his right lower flank. No CVA tenderness. Abdomen soft and nontender. No cauda equina symptoms. No complaints. Differential diagnosis includes UTI, kidney stone, muscle strain, py elonephritis. Will place an IV, screening labs, urinalysis, CT renal colic and give a dose of Toradol and fluids and reassess. Labs and imaging reviewed and unremarkable. Normal white blood cell count. Urinalysis negative. CT negative for acute findings or recently passed stone. Patient reassessed and he feels much better. Discussed that as his symptoms became significantly worse after sneezing and his paraspinal lumbar region is tender to palpation, suspect more likely musculoskeletal. Also discussed the possibility of shingles and to be aware of the development of a rash. Advised on the importance of alternating ice and heat, Tylenol and Motrin. Advised to follow up with the primary care doctor for re-evaluation. Usual and customary return precautions given prior to discharge. Medical Records Medical records reviewed: Yes I reviewed the patient's medical records. Imaging Data Radiologic Study: Radiologist's impression: CT RENAL COLIC WO CLINICAL HISTORY: R flank pain, r/o kidney stone. TECHNIQUE: Imaging Protocol: Axial computed tomography images with coronal and sagittal reformatted images were created and reviewed. COMPARISON: CT RENAL COLIC WO CONTRAST from 04/03/2017 FINDINGS: ABDOMEN: Lung Bases: Normal where visualized. Liver: Normal density. No measurable mass. Gallbladder and biliary tract: No radiodense calculus or biliary ductal dilation. Pancreas: Normal density, no abnormal calcifications or inflammatory process. Spleen: Normal. Kidneys: Normal size, contour and axis.Bilateral nephrolithiasis. No ureterolithiasis or hydronephrosis. No masses seen. Adrenal glands: No mass is seen. Lymph nodes: Within normal limits. Abdominal Aorta: Abdominal portion non-dilated. PELVIS: Bladder:Symmetric distention, no gross wall thickening. Bowel: No obstruction or bowel wall thickening. Appendix is unremarkable. Peritoneal cavity: No ascites, collection or mesenteric inflammatory response. No free air. Reproductive organs: Within normal limits. Bones: Within normal limits. Soft Tissues: Within normal limits. IMPRESSION: Bilateral nephrolithiasis. No evidence of ureterolithiasis or hydronephrosis. Results of this exam have been verbally communicated with provider. Lab Data Lab results reviewed: Yes I reviewed the patient's lab results. Labs: Laboratory Tests Range/Units 12/07/20 12/07/20 12/07/20 10:35 11:29 11:29 WBC (4.4-10.8) 10^3/uL 6.49 RBC (4.36-5.78) 10^6/uL 4.94 Hgb (13.5-17.5) g/dL 15.2 Hct (40.0-50.0) % 45.1 MCV (80-95) fL 91.3 MCH (27.0-33.0) pg 30.8 MCHC (32.0-36.0) % 33.7 RDW (11.8-14.1) % 11.3 L Plt Count (130-400) 10^3/uL 282 MPV (8.0-11.0) fL 10.5 Immature Gran % 0.2 Neutrophils % 64.2 Lymphocytes % 28.2 Monocytes % 5.4 Eosinophils % 1.2 Basophils % 0.8 Nucleated RBC % % 0 Absolute Neutrophils (1.2-6.7) 10^3/uL 4.17 Absolute Lymphocytes (1.2-3.4) 10^3/uL 1.83 Absolute Monocytes (0.1-0.8) 10^3/uL 0.35 Absolute Eosinophils (0.0-0.7) 10^3/uL 0.08 Absolute Basophils (0.0-0.2) 10^3/uL 0.05 Sodium (136-145) mmol/L 140 Potassium (3.5-5.1) mmol/L 4.2 Chloride (98-107) mmol/L 104 Carbon Dioxide (21.0-32.0) mmol/L 29.9 Anion Gap (3-11) mmol/L 6.1 BUN (7-18) mg/dL 11 Creatinine (0.70-1.30) mg/dL 0.9 Estimated GFR/1.73 m2 (mL/min/1.73m2) >= 60.00 Glucose (74-106) mg/dL 93 Calcium (8.5-10.1) mg/dL 9.5 Total Bilirubin (0.2-1.0) mg/dL 0.4 AST (15-37) U/L 14 L ALT (16-63) U/L 21 Alkaline Phosphatase (46-116) U/L 76 Total Protein (6.4-8.2) g/dL 8.0 Albumin (3.4-5.0) g/dL 4.7 Urine Color (Yellow) Yellow Urine Clarity (Clear) Clear Urine pH (5-8) 7.0 Ur Specific [place] (1.005-1.025) 1.020 Urine Protein (Negative) mg/dL Negative Urine Ketones (Negative) mg/dL Negative Urine Blood (Negative) Negative Urine Nitrite (Negative) Negative Urine Bilirubin (Negative) Negative Urine Urobilinogen (Up TO 0.2) EU/dL 0.2 Ur Leukocyte Esterase (Negative) Negative Urine Glucose (Negative) mg/dL Negative HPI General Mode of arrival: ambulatory . Date/Time Provider Initiated Documentation: 12/07/20 11:25 . Limitations to Documentation: no limitations . Information obtained by: patient . HPI Narrative: Patient is a 25-year-old male with a history of kidney stones who presents with right flank pain that started yesterday but is worse this morning. Patient states the pain feels similar to previous kidney stones. Patient states he had some mild pain yesterday but then sneezed this morning and pain became worse. Patient admits to some nausea but denies any vomiting. He states his last kidney stone was 1 year ago and feels similar. Patient denies any other known injury. He denies any fever, urinary symptoms, diarrhea, bowel or bladder incontinence, saddle anesthesia, leg pain weakness or numbness. Related Data Home Medications Medication Instructions Recorded Confirmed ibuprofen 400 mg PO Q6H PRN 09/21/19 12/07/20 acetaminophen 500 mg PO PRN PRN 12/17/19 12/07/20 Allergies Allergy/AdvReac Type Severity Reaction Status Date / Time Penicillins Allergy Unverified 12/07/20 11:27 General CAITLIN: 3 Review of Systems All systems reviewed & are unremarkable except as noted in HPI and below Constitutional Constitutional: Reports as per HPI, Denies chills and Denies fever(s) Eyes Eyes: Denies blurry vision ENT Ears, Nose, Mouth, and Throat: Denies dizziness, Denies sore throat and Denies throat swelling Cardiovascular Cardiovascular: Denies chest pain and Denies dyspnea Respiratory Respiratory: Denies cough and Denies dyspnea Gastrointestinal Gastrointestinal: Denies abdominal pain, Denies diarrhea and Denies vomiting Genitourinary Genitourinary: Denies hematuria, Denies dysuria and Reports flank pain Musculoskeletal Musculoskeletal: Denies back pain and Denies numbness Integumentary/Breasts Skin/Breast: Denies lesions and Denies rash Neurologic Neurologic: Denies dizziness, Denies localized weakness and Denies numbness Allergic/Immunologic Allergic/Immunologic: Denies throat swelling [facility] Medical History (Updated 12/07/20 @ 13:52 by Salma Zhang DO) Kidney stones Social History Smoking/Tobacco Use Status: Former Tobacco Use Smoking risk assessment performed?: Yes Alcohol Intake: current Alcohol Intake frequency: a few times a month Drug use: Never Do you feel safe at home: Yes Do you feel safe in your relationship?: Yes Exam Const General: cooperative, healthy appearing and no acute distress HENMT Head: normal to inspection Face and sinus: normal facial exam Eyes General: appearance normal, both eyes and all related structures EOM: EOM intact bilaterally Neck Neck: normal visual inspection and No submandibular swelling Lymphatic: no lymphadenopathy noted Chest Chest: normal inspection of the chest and no tenderness Resp Effort & Inspection: normal respiratory effort and able to speak in complete sentences Auscultation: clear to auscultation bilaterally Cardio Rate: regular rate Rhythm: regular rhythm GI Inspection: normal to inspection Palpation: soft, not firm, not rigid and nontender Auscultation: normal bowel sounds Back/Spine/Pelvis Back: no CVA tenderness Thoracic/Lumbar Spine: thoracic and lumbar spine normal to inspection Back/spine/pelvis image: 1. Localized area of tenderness palpation to the right lateral lumbar paraspinal region. There is no erythema, edema, ecchymosis, crepitus or rash. Skin General skin exam: no rashes or lesions noted Neuro General: patient alert, patient awake, patient oriented x3, moves all extremities and no meningeal signs Cognition: normal cognition Speech: speech normal Motor: muscle tone normal throughout and strength 5/5 throughout Sensory Exam: no sensory deficits noted Extrem General: normal to inspection, full ROM, capillary refill normal, no calf tenderness bilaterally and no edema Psych Appearance: grossly normal Mental Status: mental status grossly normal Speech and Movement: speech and movement normal Affect: normal affect
[2020-12-07 11:38] LABS: Abs Immature Grans 0.01 10^3/uL (0.0-0.06); Absolute Basophil Count 0.05 10^3/uL (0.0-0.2); Absolute Eosinophil Count 0.08 10^3/uL (0.0-0.7); Absolute Lymphocyte Count 1.83 10^3/uL (1.2-3.4); Absolute Monocyte Count 0.35 10^3/uL (0.1-0.8); Absolute Neutrophil Count 4.17 10^3/uL (1.2-6.7); Basophils % 0.8; Eosinophils % 1.2; HCT 45.1 % (40.0-50.0); HGB 15.2 g/dL (13.5-17.5); Immature Grans % 0.2; Lymphocytes % 28.2; MCH 30.8 pg (27.0-33.0); MCHC 33.7 % (32.0-36.0); MCV 91.3 fL (80-95); MPV 10.5 fL (8.0-11.0); Monocytes % 5.4; Neutrophils % 64.2; Nucleated RBC 0 %; Platelet Count 282 10^3/uL (130-400); RBC 4.94 10^6/uL (4.36-5.78); RDW 11.3 % (11.8-14.1); RDW-SD 38.2 fL; WBC 6.49 10^3/uL (4.4-10.8)
[2020-12-07] MEDS: Normal Saline 1,000 ML 1000 ML IV (11:38)
[2020-12-07 11:45] LABS: Bilirubin Negative (Negative); Blood Negative (Negative); Clarity Clear (Clear); Glucose Negative (Negative); Ketones Negative (Negative); Leukocyte Esterase Negative (Negative); Nitrite Negative (Negative); Urobilinogen 0.2 EU/dL (Up TO 0.2)
[2020-12-07 12:02] LABS: ALT 21 U/L (16-63); AST 14 U/L (15-37); Albumin 4.7 g/dL (3.4-5.0); Alkaline Phosphatase 76 U/L (46-116); Anion Gap 6.1 mmol/L (3-11); BUN 11 mg/dL (7-18); Bilirubin, Total 0.4 mg/dL (0.2-1.0); CO2 29.9 mmol/L (21.0-32.0); CREATININE 0.9 mg/dL (0.70-1.30); Calcium 9.5 mg/dL (8.5-10.1); Chloride 104 mmol/L (98-107); Glucose 93 mg/dL (74-106); Potassium 4.2 mmol/L (3.5-5.1); Sodium 140 mmol/L (136-145)
[2020-12-07] MEDS: Ondansetron 4 MG/2 ML VIAL IVP (12:09)
[2020-12-07] MEDS: Ketorolac 30 MG/ML VIAL IVP (12:12)
--- NOTE | 2020-12-07 12:47 | DI.CT_ITS ---
EXAM: CT RENAL COLIC WO CLINICAL HISTORY: R flank pain, r/o kidney stone. TECHNIQUE: Imaging Protocol: Axial computed tomography images with coronal and sagittal reformatted images were created and reviewed. COMPARISON: CT RENAL COLIC WO CONTRAST from 04/03/2017 FINDINGS: ABDOMEN: Lung Bases: Normal where visualized. Liver: Normal density. No measurable mass. Gallbladder and biliary tract: No radiodense calculus or biliary ductal dilation. Pancreas: Normal density, no abnormal calcifications or inflammatory process. Spleen: Normal. Kidneys: Normal size, contour and axis.Bilateral nephrolithiasis. No ureterolithiasis or hydronephro sis. No masses seen. Adrenal glands: No mass is seen. Lymph nodes: Within normal limits. Abdominal Aorta: Abdominal portion non-dilated. PELVIS: Bladder:Symmetric distention, no gross wall thickening. Bowel: No obstruction or bowel wall thickening. Appendix is unremarkable. Peritoneal cavity: No ascites, collection or mesenteric inflammatory response. No free air. Reproductive organs: Within normal limits. Bones: Within normal limits. Soft Tissues: Within normal limits. IMPRESSION: Bilateral nephrolithiasis. No evidence of ureterolithiasis or hydronephrosis. Results of this exam have been verbally communicated with provider. RADIATION DOSE DELIVERED: Total DLP DATA REPOSITORY: All CT scans at this facility are submitted to the National Radiology Data Registry (NRDR) Dose Index Registry (DIR) with the [employer] (A[employer]). RADIATION OPTIMIZATION: All CT scans at this facility use at least one of these dose optimization te chniques: automated exposure control; mA and/or kV adjustment per patient size (includes targeted exa ms where dose is matched to clinical indication); or iterative reconstruction.
[2020-12-07 14:03] VITALS: PULSE 72; RESP 15; O2SAT 98
== END 2020-12-07 14:03 | disposition home or self-care (01) ==
PROVIDERS: Emergency Provider Physician Assistant; PCP Nurse Practitioner Family
DX: S39.012A Strain of muscle, fascia and tendon of lower back, initial encounter (principal); X50.9XXA Other and unspecified overexertion or strenuous movements or postures, initial encounter; Z87.442 Personal history of urinary calculi
CPT/HCPCS: 36415; 80053; 96374; 96375; 99284; 74176; 81003; 85025; J1885; J2405

== ENCOUNTER 2021-09-14 14:36 | Outpatient (REF) | payer SELFPAY ==
[2021-09-15 18:10] LABS: COVID-19 RT-PCR UVMMC Result Negative (Negative)
== END 2021-09-14 14:37 | disposition home or self-care (01) ==
LOC: LBN 14:36
PROVIDERS: PCP Nurse Practitioner Family; Visit Provider Physician Assistant Medical
DX: Z20.822 Contact with and (suspected) exposure to COVID-19 (principal); J06.9 Acute upper respiratory infection, unspecified
CPT/HCPCS: U0003

== ENCOUNTER 2023-01-01 12:02 | Emergency (ER) | payer OTHER, SELFPAY ==
[2023-01-01 12:35] VITALS: BP 117/75; PULSE 78; RESP 18; TEMP 37; O2SAT 98
[2023-01-01 12:53] LABS: Bilirubin Negative (Negative); Blood Large (Negative); Clarity Sl Cloudy (Clear); Glucose Negative (Negative); Ketones Negative (Negative); Leukocyte Esterase Negative (Negative); Nitrite Negative (Negative); Specific Gravity >= 1.030 (1.005-1.025); Urobilinogen 0.2 mg/dL (Up to 0.2)
[2023-01-01 13:01] LABS: Bacteria Few HPF (Negative); C & S Indicated? Yes; Casts Negative LPF (Negative); Crystals Negative HPF (Negative); Epithelial Cells Negative HPF (Negative); Mucus Trace (Negative); RBC 20-50 HPF (0-2); WBC 0-2 HPF (0-5)
--- NOTE | 2023-01-01 13:30 | DI.CT_ITS ---
Exam(s) CT RENAL COLIC WO EXAM: CT RENAL COLIC WO CLINICAL HISTORY: right flank pain, prior stones. TECHNIQUE: Imaging Protocol: Axial computed tomography images with coronal and sagittal reformatted images were created and reviewed. CONTRAST MATERIAL: Noncontrast COMPARISON: CT CT RENAL COLIC WO from 12/07/2020 FINDINGS: ABDOMEN: Lung Bases: Normal where visualized. Liver: Normal attenuation. No measurable mass. Gallbladder and biliary tract: No radiodense calculus or dilation. Pancreas: Normal density, no calcifications or inflammatory process. Spleen: Normal. Kidneys: Normal size, contour and axis. Tiny bilateral renal calculi. Dilatation of the right ureter secondary to a 3 by 5 millimeter stone at the level of the iliac crest. No masses seen. Adrenal glands: No masses seen. Abdominal Aorta: Abdominal portion non-dilated. Soft tissues: Unremarkable. PELVIS: Bladder: Symmetric distention, no gross wall thickening. No evidence of stones.No visible mass. Bowel: No obstruction or bowel wall thickening. Reproductive: Peritoneal cavity: No ascites, collection or mesenteric inflammatory response. Bones: Unremarkable for age.. IMPRESSION: Mild right hydronephrosis secondary to a 3 x 5 millimeter stone in the mid right ureter. Other tiny nonobstructing renal stones are noted bilaterally. RADIATION DOSE DELIVERED: 695.21mGy.cm Total DLP DATA REPOSITORY: All CT scans at this facility are submitted to the National Radiology Data Registry (NRDR) Dose Index Registry (DIR) with the [employer] (ACR). RADIATION OPTIMIZATION: All CT scans at this facility use at least one of these dose optimization te chniques: automated exposure control; mA and/or kV adjustment per patient size (includes targeted exa ms where dose is matched to clinical indication); or iterative reconstruction.
[2023-01-01] MEDS: Ondansetron O.D.T. 4 MG TABEF PO (14:23)
[2023-01-01] MEDS: Ketorolac 30 MG/ML VIAL IM (14:24)
--- NOTE | 2023-01-01 14:40 | ED.GENADUL_ITS ---
Discharge Plan Disposition Patient Disposition: Home Condition: Stable Discharge Details Clinical Impression: Ureteral calculus, right, Ureteral stone with hydronephrosis Primary Care Provider: Dodie Mendez ED Provider: Asad Marcial Home Meds and New Rx's Prescriptions: New tamsulosin [Flomax] 0.4 mg capsule 0.4 mg PO DAILY Qty: 30 0RF oxycodone 5 mg tablet 5 mg PO BID PRN (Reason: severe pain) Qty: 10 0RF ondansetron 4 mg tablet,disintegrating 4 mg PO Q8H PRN (Reason: nausea and vomiting) Qty: 10 0RF Continued ibuprofen 200 mg Tablet 400 mg PO Q6H PRN acetaminophen 500 mg Tablet 500 mg PO PRN PRN Discharge Instructions Instructions: Kidney Stones (ED) Additional Instructions: Please take ibuprofen over the counter. Take 600mg by mouth every 6 hours as needed for pain. Please take acetaminophen (tylenol) - 650mg every 6 hours by mouth as needed for pain. Please take oxycodone as prescribed only for severe pain. Please contact your primary care physician to arrange follow-up. Return to the ER immediately for any worsening or new concerning symptoms. Stand Alone Forms: Work Release Referrals: Salvador Erickson MD [ [facility] STAFF PHYSICIAN] - Medical Decision Making 27-year-old male with history of renal stones, here with right flank pain over the past 1.5 days with associated nausea. Concern for ureteral colic. Patient is hemodynamically stable and afebrile. Urinalysis was reviewed and concerning for 20-50 RBCs, 0-[address] of the abdomen pelvis was interpreted by radiology: Mild right hydronephrosis secondary to a 3 x 5 millimeter stone in the mid right ureter.? Other tiny nonobstructing renal stones are noted bilaterally. I have initiated treatment with Flomax. Patient was given Toradol IM for pain. He was also given ondansetron orally for nausea. All results were discussed with the patient. Usual customary discharge instructions were reviewed. Plan for follow-up with urology. Patient was provided strainer to strain his urine. HPI General Mode of arrival: ambulatory . Date/Time Provider Initiated Documentation: 01/01/23 13:27 . Limitations to Documentation: no limitations . Information obtained by: patient . HPI Narrative: 27-year-old male with history of renal stones, here with right flank pain. Pain is severe and constant for the past 1.5 days. No associated fever. He does have some associated nausea. Pain feels similar to prior kidney stones but more severe than most recent. No associated dysuria. Related Data Home Medications Medication Instructions Recorded Confirmed ibuprofen 200 mg tablet 400 mg PO Q6H PRN 09/21/19 01/01/23 acetaminophen 500 mg tablet 500 mg PO PRN PRN 12/17/19 01/01/23 ondansetron 4 mg disintegrating 4 mg PO Q8H PRN nausea and 01/01/23 tablet vomiting #10 tabs oxycodone 5 mg tablet 5 mg PO BID PRN severe pain #10 01/01/23 tabs tamsulosin 0.4 mg capsule (Flomax) 0.4 mg PO DAILY #30 caps 01/01/23 Previous Rx's Medication Instructions Recorded ondansetron 4 mg disintegrating 4 mg PO Q8H PRN nausea and 01/01/23 tablet vomiting #10 tabs oxycodone 5 mg tablet 5 mg PO BID PRN severe pain #10 01/01/23 tabs tamsulosin 0.4 mg capsule (Flomax) 0.4 mg PO DAILY #30 caps 01/01/23 Allergies Allergy/AdvReac Type Severity Reaction Status Date / Time Penicillins Allergy Unverified 01/01/23 12:38 General Stated Complaint: FlankPain CAITLIN: 3 Review of Systems All systems reviewed & are unremarkable except as noted in HPI and below Constitutional Constitutional: Denies fever(s) Genitourinary Genitourinary: Reports as per HPI PFSH All Active Problems (Updated 01/01/23 @ 14:47 by Asad Marcial MD) Influenza B (Acute) Ureteral calculus, right (Acute) Ureteral stone with hydronephrosis (Acute) Medical History (Updated 01/01/23 @ 14:47 by Asad Marcial MD) Kidney stones Social History Smoking/Tobacco Use Status: Former Tobacco Use Smoking risk assessment performed?: Yes Alcohol Intake: former Drug use: Daily Substance use type: marijuana Do you feel safe at home: Yes Do you feel safe in your relationship?: Yes Exam Const General: uncomfortable HENMT Mouth: moist mucous membranes Eyes Conjunctivae: normal conjunctivae Sclera: normal sclerae Neck Neck: trachea midline and supple Resp Auscultation: clear to auscultation bilaterally, no rales, no rhonchi and no wheezes Cardio Rate: regular rate and not tachycardic Rhythm: regular rhythm GI Palpation: soft, not firm, no guarding, no masses, not rigid and tender in the RLQ Back/Spine/Pelvis Back: CVA tenderness (rt) Skin General skin exam: no rashes or lesions noted Neuro General: patient alert, patient awake and tone normal Extrem General: no edema Psych Appearance: grossly normal Mental Status: mental status grossly normal Course Vital Signs Vital signs: Vital Signs Temperature 37.0 C 01/01/23 12:35 Pulse 78 01/01/23 12:35 Respiratory Rate 18 01/01/23 12:35 Blood Pressure 117/75 01/01/23 12:35 Pulse Oximetry 98 01/01/23 12:35 Temperature 37.0 C 01/01/23 12:35 Temperature Source Oral 01/01/23 12:35 Pulse 78 01/01/23 12:35 Respiratory Rate 18 01/01/23 12:35 Respiratory Effort Normal, Non-Labored 01/01/23 12:37 Blood Pressure 117/75 01/01/23 12:35 Pulse Oximetry 98 01/01/23 12:35 Oxygen Delivery Method Room Air 01/01/23 12:35 Oxygen Flow Rate 0 01/01/23 12:35 Lab/Test Results Lab/Test Results: 01/01/23 12:41 Urine - Reflex from Ua Urine Culture - Pending Laboratory Tests Range/Units 01/01/23 12:41 Urine Color (Yellow) Yellow Urine Clarity (Clear) Sl Cloudy Urine pH (5-8) 6.0 Ur Specific [place] (1.005-1.025) >= 1.030 H Urine Protein (Negative) mg/dL 100 H Urine Ketones (Negative) mg/dL Negative Urine Blood (Negative) Large H Urine Nitrite (Negative) Negative Urine Bilirubin (Negative) Negative Urine Urobilinogen (Up to 0.2) mg/dL 0.2 Ur Leukocyte Esterase (Negative) Negative Urine RBC (0-2) HPF 20-50 H Urine WBC (0-5) HPF 0-2 Ur Epithelial Cells (Negative) HPF Negative Urine Crystals (Negative) HPF Negative Urine Bacteria (Negative) HPF Few Urine Casts (Negative) LPF Negative Urine Mucus (Negative) Trace Ur Culture Indicated? Yes Urine Glucose (Negative) mg/dL Negative
[2023-01-01] MEDS: Tamsulosin 0.4 MG CAPCR PO (14:53)
[2023-01-01 15:10] VITALS: BP 126/77; PULSE 78; RESP 16; TEMP 36.8; O2SAT 96
--- NOTE | 2023-01-01 17:05 | NUR.NOTE ---
Nursing Note: Referral faxed to [facility] for kidney stone, 5mm, mid ureter/appt determined by Urology
== END 2023-01-01 15:23 | disposition home or self-care (01) ==
PROVIDERS: Emergency Provider Student in an Organized Health Care Education/Training Program; PCP Nurse Practitioner Family
DX: N13.2 Hydronephrosis with renal and ureteral calculous obstruction (principal); Z87.442 Personal history of urinary calculi
CPT/HCPCS: 96372; 99284; 74176; 81003; 81015; 87086; J1885

== ENCOUNTER 2023-01-04 06:33 | Emergency (ER) | payer OTHER, SELFPAY ==
[2023-01-04 06:38] VITALS: BP 132/90; PULSE 64; RESP 22; TEMP 36.8; O2SAT 96
--- NOTE | 2023-01-04 06:52 | ED.GENADUL_ITS ---
Discharge Plan Discharge Details Chief Complaint: FlankPain Primary Care Provider: Dodie Mendez ED Provider: Nikolay Cunningham Home Meds and New Rx's Prescriptions: No Action ibuprofen 200 mg Tablet 400 mg PO Q6H PRN tamsulosin [Flomax] 0.4 mg capsule 0.4 mg PO DAILY Qty: 30 0RF oxycodone 5 mg tablet 5 mg PO BID PRN (Reason: severe pain) Qty: 10 0RF ondansetron 4 mg tablet,disintegrating 4 mg PO Q8H PRN (Reason: nausea and vomiting) Qty: 10 0RF acetaminophen 500 mg Tablet 500 mg PO PRN PRN Medical Decision Making This is a pleasant 27-year-old male with a past medical history of multiple previous kidney stones, who presents today for evaluation of right flank pain. 6 days ago he began having right flank discomfort which felt identical to his previous kidney stones. And then 3 days ago he came to the ER and was evaluated, he showed evidence of a 3 x 5 mm stone on the right side that was at the level of the iliac crest. Patient states that for the last 3 days since then he has been having persistent pain that is unresolving. He has been taking the Flomax as directed. He notes that the [place] is made him nauseous and sick, and the Zofran did not help his nausea or vomiting. He has been taking NSAIDs at home otherwise for treatment. Some hydro was noted on previous CAT scan. Laboratory work-up was stable at that time. He does feel that the pain has transition from the right flank to the right groin, but still also remains in the flank. He denies any dysuria. He denies any diarrhea. No other complaints at this time. No other modifying factors. Physical exam demonstrates well-appearing male in mild pain. Mild right CVA tenderness, subjective right lower testicle pain, however no evidence of torsion clinically. No hernia. Patient feels notably uncomfortable. We will get a repeat urinalysis, check his renal function, hold off on additional imaging. We will treat his pain and gently rehydrate. We will give 500 normal saline, 4 of morphine, 4 of Zofran, and Toradol. We will reach out to Dr. Erickson once urinal ysis and renal function results return. HPI General Date/Time Provider Initiated Documentation: 01/04/23 06:44 . HPI Narrative: This is a pleasant 27-year-old male with a past medical history of multiple previous kidney stones, who presents today for evaluation of right flan k pain. 6 days ago he began having right flank discomfort which felt identical to his previous kidney stones. And then 3 days ago he came to the ER and was evaluated, he showed evidence of a 3 x 5 mm stone on the right side that was at the level of the iliac crest. Patient states that for the last 3 days since then he has been having persistent pain that is unresolving. He has been taking the Flomax as directed. He notes that the [place] is made him nauseous and sick, and the Zofran did not help his nausea or vomiting. He has been taking NSAIDs at home otherwise for treatment. Some hydro was noted on previous CAT scan. Laboratory work-up was stable at that time. He does feel that the pain has transition from the right flank to the right groin, but still also remains in the flank. He denies any dysuria. He denies any diarrhea. No other complaints at this time. No other modifying factors. Related Data Home Medications Medication Instructions Recorded Confirmed ibuprofen 200 mg tablet 400 mg PO Q6H PRN 09/21/19 01/01/23 acetaminophen 500 mg tablet 500 mg PO PRN PRN 12/17/19 01/01/23 ondansetron 4 mg disintegrating 4 mg PO Q8H PRN nausea and 01/01/23 tablet vomiting #10 tabs oxycodone 5 mg tablet 5 mg PO BID PRN severe pain #10 01/01/23 tabs tamsulosin 0.4 mg capsule (Flomax) 0.4 mg PO DAILY #30 caps 01/01/23 01/04/23 Previous Rx's Medication Instructions Recorded ondansetron 4 mg disintegrating 4 mg PO Q8H PRN nausea and 01/01/23 tablet vomiting #10 tabs oxycodone 5 mg tablet 5 mg PO BID PRN severe pain #10 01/01/23 tabs tamsulosin 0.4 mg capsule (Flomax) 0.4 mg PO DAILY #30 caps 01/01/23 Allergies Allergy/AdvReac Type Severity Reaction Status Date / Time Penicillins Allergy Unverified 01/04/23 07:51 General Stated Complaint: FlankPain CAITLIN: 3 Review of Systems All systems reviewed & are unremarkable except as noted in HPI and below PFSH All Active Problems Influenza B (Acute) Ureteral calculus, right (Acute) Ureteral stone with hydronephrosis (Acute) Medical History Kidney stones Social History Smoking/Tobacco Use Status: Former Tobacco Use Smoking risk assessment performed?: Yes Alcohol Intake: former Drug use: Daily Substance use type: marijuana Do you feel safe at home: Yes Do you feel safe in your relationship?: Yes Exam Narrative Exam Narrative: 1.Const: Well-nourished, Well-developed, appearing stated age 2.Eyes: PERRL, no conjunctival injection, and symmetrical lids. 3.ENT: Atraumatic external nose and ears. Moist MM. Neck: Symmetric, trachea midline, No thyromegaly. 4.CVS: +S1/S2, No murmurs or gallops. Peripheral pulses 2+ and equal in all extremities. Brisk capillary refill in all extremities. 5.RESP: Unlabored respiratory effort. Clear to auscultation bilaterally. No wheezes rales or rhonchi 6.GI: Soft, Nontender/Nondistended, No hepatosplenomegaly. No guarding or rebound. Mild right CVA tenderness. No pain at McBurney's point, negative Mishra sign. Mild subjective pain in the right testicle, however testicle is nontender on palpation. Normal cremasteric reflex bilaterally. 7.MSK: Normocephalic/Atraumatic, Extremities w/o deformity or ttp No cyanosis or clubbing, Normal movement of all extremities 8.Skin: Warm, Dry. No rashes or lesions. 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 Sensation grossly intact, no focal neurologic deficits. 10.Psych: (AAO) x3. Appropriate mood and affect Course Vital Signs Vital signs: Vital Signs Temperature 36.8 C 01/04/23 06:38 Pulse 64 01/04/23 06:38 Respiratory Rate 22 01/04/23 06:38 Blood Pressure 132/90 01/04/23 06:38 Pulse Oximetry 96 01/04/23 06:38 Temperature 36.8 C 01/04/23 06:38 Temperature Source Temporal Artery Scan 01/04/23 06:38 Pulse 64 01/04/23 06:38 Respiratory Rate 22 01/04/23 06:38 Respiratory Effort Normal 01/04/23 06:41 Blood Pressure 132/90 01/04/23 06:38 Blood Pressure Position Sitting 01/04/23 06:38 Pulse Oximetry 96 01/04/23 06:38 Oxygen Delivery Method Room Air 01/04/23 06:38 Oxygen Flow Rate 0 01/04/23 06:38 Pain Level 6 01/04/23 06:38
[2023-01-04] MEDS: Normal Saline 500 ML IV ×2 (07:05→08:06)
[2023-01-04] MEDS: Ketorolac 30 MG/ML VIAL IVP (07:11)
[2023-01-04 07:12] LABS: Abs Immature Grans 0.05 10^3/uL (0.0-0.06); Absolute Basophil Count 0.01 10^3/uL (0.0-0.2); Absolute Lymphocyte Count 1.77 10^3/uL (1.2-3.4); Absolute Monocyte Count 0.26 10^3/uL (0.1-0.8); Absolute Neutrophil Count 2.41 10^3/uL (1.2-6.7); Basophils % 0.2; Eosinophils % 2.2; HCT 41.9 % (40.0-50.0); HGB 14.4 g/dL (13.5-17.5); Immature Grans % 1.1; Lymphocytes % 38.5; MCH 31.2 pg (27.0-33.0); MCHC 34.4 % (32.0-36.0); MCV 91 fL (80-95); MPV 10.3 fL (8.0-11.0); Monocytes % 5.7; Neutrophils % 52.3; Platelet Count 260 10^3/uL (130-400); RBC 4.62 10^6/uL (4.36-5.78); RDW 11.9 % (11.8-14.1); RDW-SD 38.5 fL
[2023-01-04] MEDS: Ondansetron 4 MG/2 ML VIAL IVP (07:12)
[2023-01-04] MEDS: MORPHine 4 MG/ML SYR IVP ×2 (07:15→07:50)
[2023-01-04 07:29] LABS: ALT 33 U/L (16-63); AST 25 U/L (15-37); Alkaline Phosphatase 84 U/L (46-116); Anion Gap 9.2 mmol/L (3-11); BUN 11 mg/dL (7-18); Bilirubin, Total 0.5 mg/dL (0.2-1.0); CO2 28.8 mmol/L (21.0-32.0); CREATININE 0.9 mg/dL (0.70-1.30); Calcium 9.2 mg/dL (8.5-10.1); Chloride 104 mmol/L (98-107); Estimated GFR 118.57 (mL/min/1.73m2); Glucose 89 mg/dL (74-106); Potassium 3.9 mmol/L (3.5-5.1); Sodium 142 mmol/L (136-145); Total Protein 7.7 g/dL (6.4-8.2)
[2023-01-04 07:42] LABS: Bilirubin Small (Negative); Blood Large (Negative); Clarity Cloudy (Clear); Glucose Negative (Negative); Ketones 80 mg/dL (Negative); Leukocyte Esterase Negative (Negative); Nitrite Negative (Negative); Specific Gravity 1.025 (1.005-1.025); pH 6.5 (5-8)
[2023-01-04] MEDS: Tamsulosin 0.4 MG CAPCR PO (07:49)
[2023-01-04 07:56] LABS: Bacteria Negative HPF (Negative); C & S Indicated? No; Casts 0-2 Hyaline LPF (Negative); Crystals Negative HPF (Negative); Epithelial Cells Rare HPF (Negative); Mucus Negative (Negative); RBC >50 HPF (0-2); WBC 0-2 HPF (0-5)
--- NOTE | 2023-01-04 09:38 | ED.PROG_ITS ---
Date of service: 01/04/23 Time of Service: 09:39 Medical Decision Making pt resting comfortable in bed, ua without evidence of concurrent infection. Spoke with Dr. Erickson and unfortunately due to med staff meetings his afternoon is already full so won't be able to do any procedures until tomorrow at the earliest. Discussed with the patient trying to go home vs admit for pain control and he prefers to try outpatient again. He states zofran wasn't helping his n/v so will try compazine. Return precautions given Sign Out Sign Out Data: Sign Out Comment: Follow-up on urinalysis and consult with Dr. Erickson Last updated by Nikolay Cunningham DO at 01/04/23 07:54 Discharge Plan Disposition Patient Disposition: Home Discharge Details Clinical Impression: Ureteral calculus, right Primary Care Provider: Dodie Mendez ED Provider: Mc Ziegler Home Meds and New Rx's Prescriptions: New prochlorperazine maleate [Compazine] 10 mg tablet 10 mg PO Q6H PRNQty: 20 0RF Continued ibuprofen 200 mg Tablet 400 mg PO Q6H PRN tamsulosin [Flomax] 0.4 mg capsule 0.4 mg PO DAILY Qty: 30 0RF oxycodone 5 mg tablet 5 mg PO BID PRN (Reason: severe pain) Qty: 10 0RF acetaminophen 500 mg Tablet 500 mg PO PRN PRN Discontinued ondansetron 4 mg tablet,disintegrating 4 mg PO Q8H PRN (Reason: nausea and vomiting) Qty: 10 0RF Discharge Instructions Instructions: Kidney Stones (ED) Additional Instructions: if you develop fevers, persistent vomiting despite medications or feel more ill return to the emergency department you can take 1000mg tylenol and 600mg ibuprofen every 6 hours Referrals: Salvador Erickson MD [ [facility] STAFF PHYSICIAN] -
[2023-01-04 09:46] VITALS: BP 124/76; PULSE 52; RESP 18; TEMP 37.2; O2SAT 97
[2023-01-04 09:48] VITALS: BP 124/76; PULSE 52; RESP 18; TEMP 37.2; O2SAT 97
== END 2023-01-04 09:51 | disposition home or self-care (01) ==
PROVIDERS: Student in an Organized Health Care Education/Training Program; Emergency Provider Emergency Medicine; PCP Nurse Practitioner Family
DX: N20.1 Calculus of ureter (principal); Z87.442 Personal history of urinary calculi
CPT/HCPCS: 80053; 96361; 96374; 96375; 96376; 99284; 81003; 81015; 85025; J1885; J2270; J2405

== ENCOUNTER 2023-01-05 10:27 | Day surgery (SDC) | payer OTHER, SELFPAY ==
[2023-01-05] VITALS (11 sets, daily range): BP systolic 100–133; BP diastolic 54–85; PULSE 49–73; RESP 7–18; TEMP 36.3–37.1; O2SAT 95–99; BMI 21.9
--- NOTE | 2023-01-05 09:43 | W.ANESPRE ---
General Info Date of Service Date Performed: 01/05/23 Height: 5 ft 7 in Weight: 63.503 kg Body Mass Index (BMI): 21.9 Surgical Procedure: Operation Date: 01/05/23 12:10 Proposed Procedure Side Surgeon p Cystoscopy/Laser/Retrograde/Ureteroscopy/ Possible Stent Placement Right Salvador Erickson MD Meds Allergies and Home Medications Allergies Allergy/AdvReac Type Severity Reaction Status Date / Time Penicillins Allergy Unknown Other (See Unverified 01/04/23 15:15 Comment) Home Medication Medication Instructions Recorded ibuprofen 200 mg tablet 400 mg PO Q6H PRN 09/21/19 acetaminophen 500 mg tablet 500 mg PO PRN PRN 12/17/19 oxycodone 5 mg tablet 5 mg PO BID PRN severe pain #10 01/01/23 tabs tamsulosin 0.4 mg capsule (Flomax) 0.4 mg PO DAILY #30 caps 01/01/23 prochlorperazine maleate 10 mg 10 mg PO Q6H PRN #20 tabs 01/04/23 tablet (Compazine) Current Visit Medications: Current Medications Generic Name Dose Route Start Last Admin Trade Name Freq PRN Reason Stop Dose Admin Ciprofloxacin HCl 500 mg 01/05/23 06:00 Ciprofloxacin 500 Mg Tab PO 01/05/23 16:00 PREOP BHARGAVI Ringer's Solution 1,000 mls @ 80 mls/hr 01/05/23 06:00 IV 01/05/23 23:59 [facility] IV Miscellaneous Supplies 1 each 01/05/23 06:00 Iv Access IV 01/05/23 23:59 DIRECTED BHARGAVI Sodium Chloride 0 ml 01/05/23 06:00 Normal Saline Flush 10 Ml Syr IV 01/05/23 23:59 PRN PRN Sodium Chloride 0 ml 01/05/23 06:00 Normal Saline 10 Ml Vial IJ 01/05/23 23:59 DIRECTED PRN Sterile Water 0 ml 01/05/23 06:00 Water,Injection,Sterile 10 Ml Vial IJ 01/05/23 23:59 DIRECTED PRN PFSH Active Problems Active Problems: Problem Status Onset Code Influenza B J10.1 Ureteral calculus, right N20.1 Ureteral stone with hydronephrosis N13.2 Medical History Medical History (Updated 01/05/23 @ 10:51 by Radha Sosa) Kidney stones Tobacco Smoking/Tobacco Use Status: Former Tobacco Use Alcohol Alcohol Intake: former Substance Use Substance use: Daily Substance use type: marijuana Vital Signs and Lab Results Vital Signs Most Recent Vital Signs in EMR: Temp Pulse Resp BP Pulse Ox 37.1 C 73 18 124/81 96 01/05/23 10:40 01/05/23 10:40 01/05/23 10:40 01/05/23 10:40 01/05/23 10:40 Lab Results Blood Type / Crossmatch: No Data to Display Complete Blood Count: White Blood Count 4.60 10^3/uL (4.4-10.8) 01/04/23 07:00 Red Blood Count 4.62 10^6/uL (4.36-5.78) 01/04/23 07:00 Hemoglobin 14.4 g/dL (13.5-17.5) 01/04/23 07:00 Hematocrit 41.9 % (40.0-50.0) 01/04/23 07:00 Platelet Count 260 10^3/uL (130-400) 01/04/23 07:00 Complete Metabolic Panel: Sodium 142 mmol/L (136-145) 01/04/23 07:00 Potassium 3.9 mmol/L (3.5-5.1) 01/04/23 07:00 Chloride 104 mmol/L (98-107) 01/04/23 07:00 Carbon Dioxide 28.8 mmol/L (21.0-32.0) 01/04/23 07:00 BUN 11 mg/dL (7-18) 01/04/23 07:00 Creatinine 0.9 mg/dL (0.70-1.30) 01/04/23 07:00 Est GFR (CKD-EPI 2020) 118.57 (mL/min/1.73m2) 01/04/23 07:00 Calcium 9.2 mg/dL (8.5-10.1) 01/04/23 07:00 Albumin 4.0 g/dL (3.4-5.0) 01/04/23 07:00 Glucose 89 mg/dL (74-106) 01/04/23 07:00 Liver Function Panel: Alanine Aminotransferase (ALT/SGPT) 33 U/L (16-63) 01/04/23 07:00 Aspartate Amino Transf (AST/SGOT) 25 U/L (15-37) 01/04/23 07:00 Coagulation Panel: No Data to Display Cardiac Panel: No Data to Display Arterial Blood Gas: No Data to Display Venous Blood Gas: No Data to Display Pancreas Panel: No Data to Display Thyroid Panel: No Data to Display Infectious Disease: No Data to Display Blood Cultures: No Data to Display Toxicology Panel: No Data to Display Anesthesia Assessment and Plan Anesthesia History Personal History: No History of General Anesthesia Family History: No Family History of Anesthesia Complications Exercise Tolerance Exercise Tolerance: Metabolic Equivalents>4 Cardiac & Pulmonary Exam Cardiac Exam: Normal S1/S2 Heart Sounds Pulmonary Exam: Clear Bilateral Breath Sounds Implantable Cardiac Device Does patient have a Pacemaker or an ICD?: No Airway Exam Known Difficult Airway: No Mallampati Class: 1 Mouth Opening: Normal (> 3cm) Thyromental Distance: Greater than 3 cm Neck Range of Motion: Full ROM Neck Circumference: Normal Teeth Condition: Normal Dentition ASA Classification ASA Score: ASA 2 Emergency Case?: No NPO Status NPO Status: NPO Clears >2 hours, Solids >8 hours Anesthesia Plan Resuscitation Status: Full Code Anesthesia Technique: General Anesthesia Airway Planned: LMA Monitors Used: Standard Monitors Preoperative Comments:: 27 yo male to OR with kidney stone. Sig PMHx: former smoker, daily cannabis.
[2023-01-05] MEDS: Lactated Ringers 1,000 ML 80 ML IV (11:14)
--- NOTE | 2023-01-05 11:39 | W.PM.HP.N ---
Date of service: 01/05/23 Time of Service: 11:39 Assessment and Plan Assessment and plan (1) Ureteral stone with hydronephrosis: Status: Acute Assessment and plan: He has failed conservative management with multiple visits to the ED since his initial presentation. We will move ahead with cystoscopy, retrograde pyelogram, ureteroscopy and stone manipulation. If we are unable to access his stone, we will likely need to place a ureteral stent and address the stone in a staged procedure. A staged procedure requires a second planned trip to the operating room to complete the ureteroscopy. Otherwise, we discussed potential side effects/complications such as bleeding, infection and ureteral injuries/strictures. History of Present Illness History of Present Illness Chief Complaint: Right ureteral stone Narrative: This is a 27-year-old gentleman who has a past history of kidney stones. He has been able to pass the stone spontaneously and has never required surgery for his procedures. He presented to the emergency department about a week ago with an acute onset of right-sided flank pain, nausea and vomiting. He has seen blood in his urine. He has not had fevers or chills. He was evaluated with a CT scan and was found to have a mid to proximal right ureteral stone. He was treated conservatively with alpha blockers and analgesics. He has had persistent pain and nausea which has required multiple trips back to the emergency department. He has not passed a stone. His pain is now more in the groin area. He presents for stone manipulation. Review of Systems Narrative: No fevers or chills No vision change or dysphasia No diabetes or thyroid dysfunction No shortness of breath, cough or hemoptysis No chest pain or palpitations No hepatitis, ulcers, jaundice, diarrhea or constipation No seizures, strokes or peripheral neuropathy No bleeding disorders or anemia No gout PFSH All Active Problems (Updated 01/05/23 @ 10:51 by Radha Sosa) Influenza B (Acute) Ureteral calculus, right (Acute) Ureteral stone with hydronephrosis (Acute) Medical History (Updated 01/05/23 @ 10:51 by Radha Sosa) Kidney stones Social History Smoking/Tobacco Use Status: Former Tobacco Use Quit Date: 10/29/19 Smoking risk assessment performed?: Yes Alcohol Intake: former Drug use: Daily Substance use type: marijuana Do you feel safe at home: Yes Do you feel safe in your relationship?: Yes Meds Allergies and Home Medications Allergies Allergy/AdvReac Type Severity Reaction Status Date / Time Penicillins Allergy Unknown Other (See Unverified 01/04/23 15:15 Comment) Home Medications Medication Instructions Recorded Confirmed Type ibuprofen 200 mg tablet 400 mg PO Q6H PRN 09/21/19 01/04/23 History acetaminophen 500 mg tablet 500 mg PO PRN PRN 12/17/19 01/04/23 History oxycodone 5 mg tablet 5 mg PO BID PRN severe pain #10 01/01/23 01/05/23 Rx tabs tamsulosin 0.4 mg capsule (Flomax) 0.4 mg PO DAILY #30 caps 01/01/23 01/05/23 Rx prochlorperazine maleate 10 mg 10 mg PO Q6H PRN #20 tabs 01/04/23 01/04/23 Rx tablet (Compazine) Exam Const General: cooperative Neck Neck: supple Resp Effort & Inspection: normal respiratory effort Auscultation: clear to auscultation bilaterally Cardio Rate: regular rate Rhythm: regular rhythm GI Inspection: normal to inspection Palpation: soft and no masses Neuro General: patient alert, patient awake and patient oriented x3 Results Last Vital Signs Temp 37.1 C 01/05/23 10:40 Pulse 73 01/05/23 10:40 Resp 18 01/05/23 10:40 BP 124/81 01/05/23 10:40 Pulse Ox 96 01/05/23 10:40 Time Spent Time spent with Patient: <40 minutes Time was spent: counseling the patient
[2023-01-05] MEDS: Ciprofloxacin 500 MG TAB PO (11:51)
--- NOTE | 2023-01-05 12:00 | DI.RAD_ITS ---
Exam(s) XR RETROGRADE IN OR EXAM: XR RETROGRADE IN OR CLINICAL HISTORY: RIGHT URETERAL STONE TECHNIQUE: 2D and realtime digital imaging was performed. CONTRAST MATERIAL: Refer to procedure report. COMPARISON: No exams were available for comparison FINDINGS: Fluoroscopy was provided for Dr. Erickson during the performance of a retrograde evaluation of the alexa l collecting system. No images were saved.. Please refer to the procedure report for complete detai ls. Ka,r=4.9 mGy IMPRESSION: RADIATION DOSE DELIVERED:
[2023-01-05] MEDS: Omnipaque 300 MG/ML 50 ML BTL (12:35)
[2023-01-05] MEDS: Lidocaine 2% Jelly 6 ML SYR (12:35)
--- NOTE | 2023-01-05 13:01 | W.PM.DSUDISC ---
Date of service: 01/05/23 Time of Service: 13:01 Discharge Plan Disposition Patient Disposition: Home Condition: Stable Discharge Details Reason For Visit: ureteroscopy Attending Provider: Salvador Erickson Primary Care Provider: Dodie Mendez Home Meds and New Rx's Prescriptions: Continued ibuprofen 200 mg Tablet 400 mg PO Q6H PRN tamsulosin [Flomax] 0.4 mg capsule 0.4 mg PO DAILY Qty: 30 0RF prochlorperazine maleate [Compazine] 10 mg tablet 10 mg PO Q6H PRNQty: 20 0RF oxycodone 5 mg tablet 5 mg PO BID PRN (Reason: severe pain) Qty: 10 0RF acetaminophen 500 mg Tablet 500 mg PO PRN PRN Discharge Instructions Additional Instructions: no need to strain urine followup next week for stent removal (tell my office pt has string on stent) followup 6 weeks with renal US Activity:: Activity as Tolerated Shower/Bathe:: 24 hours Diet:: As Tolerated Discharge Orders Discharge Orders: Discharge Order (Routine); Ordered 01/05/23 Ordered By: Salvador Erickson DS: Diagnosis Discharge Diagnosis (1) Ureteral stone with hydronephrosis: Status: Acute
--- NOTE | 2023-01-05 13:08 | ROE_ITS ---
Date of service: 01/05/23 Time of Service: 13:08 Operative Note Operative Note DATE OF PROCEDURE: 01/05/23 PRE-OP DIAGNOSIS: Right ureteral stone POST-OP DIAGNOSIS: same PROCEDURE: Cystoscopy, right retrograde pyelogram, right flexible ureteroscopy with stone extraction, insert right ureteral stent SURGEON: Salvador Erickson ANESTHESIA TYPE: General LMA/ETT Refer to Anesthesia Record ESTIMATED BLOOD LOSS: 0 PATHOLOGY: other (Stone for chemical analysis) COMPLICATIONS: None Patient was transported to: PACU Patient's condition: stable Implants: 4.8 [place] by 22 to 30 cm right ureteral stent Indications: This is a 27-year-old gentleman who has a past history of kidney stones. He has been able to pass each of his stones previously and has not required surgery. He developed renal colic symptoms about 10 days ago. He was found to have a stone just above the level of the iliac crest. He was treated with conservative management, but has had persistent symptoms and multiple trips to the emergency department. He presents for stone manipulation Findings: Stone in the mid ureter Procedure Description: The patient was brought to the operating room on 01/05/2023. He was given preoperative antibiotics. After successful induction of general anesthesia, he was placed in the dorsal lithotomy position. His genitalia was prepped and draped. 2% Xylocaine jelly was instilled into the urethra to act as a local anesthetic. A 22 [place] rigid cystoscope was passed through the urethra into the bladder. The urethra and bladder were inspected with the 30 degree lens. The pendulous, bulbar and membranous urethra is all appeared normal with no strictures. The prostatic urethra appeared normal with no significant lateral lobe or median lobe enlargement. The bladder neck was entered and the bladder mucosa was inspected. The right ureteral orifice was identified and was cannulated with a 5 [place] access catheter. Retrograde pyelogram was obtained by injecting Omnipaque through the access catheter under fluoroscopic guidance. A filling defect was outlined in the mid ureter. A Glidewire was then advanced through the lumen of the access catheter and the catheter was removed. A dual-lumen catheter was passed and a second wire was positioned. We chose one of the wires as a working wire and the other as a safety wire. I passed a ureteral access sheath over the working wire. I removed the wire and passed the flexible ureteroscope through the lumen of the access sheath. We advanced the scope until a stone was seen in the mid ureter. The stone was fairly free-floating, so we elected to grasp the stone and a 0 tip stone basket and we removed the stone in its entirety. The stone was sent to pathology for chemical analysis. We then elected to place a temporary right ureteral stent. We chose a 4.8 [place] variable length stent and advanced it over the safety wire. The proximal end of the stent was positioned in the renal pelvis and the distal end in the bladder. The safety string was left in place and brought through the patient's urethra. The string was then taped to the dorsum of the penis. The positioning of the stent was confirmed both fluoroscopically and cysto scopically. The patient tolerated this procedure well. He was taken to the recovery room in stable condition.
--- NOTE | 2023-01-05 13:35 | W.ANESPOSTOP ---
Postoperative Evaluation Date, Time and Location Date Performed: 01/05/23 Time Performed: 13:35 Patient Location: PACU Vital Signs Most Recent Imported Vital Signs: Most Recent Vital Signs Temp Pulse Resp BP Pulse Ox 36.5 C 54 L 14 103/66 96 01/05/23 13:25 01/05/23 13:25 01/05/23 13:25 01/05/23 13:25 01/05/23 13:25 Pain Score Most Recent Pain Score: Most Recent Pain Score Pain Level 2 01/05/23 13:25 Assessment Mental Status: Awake (Alert & Oriented to Patient Baseline) Airway and Respiratory Function: Patent airway with normal (patient baseline) respiratory exam Cardiovascular Function: Hemodynamically Stable Hydration Status: Adequately Hydrated Nausea & Vomiting: No Nausea or Vomiting Pain: Pain is Moderate or Severe Postoperative Pain Management: Pain being addressed with medication Peripheral Nerve Block: Patient did not receive a nerve block
[2023-01-05] MEDS: HYDROmorphone 2 MG/ML SYR IVP ×4 (13:36→14:04)
[2023-01-05] MEDS: Phenazopyridine 200 MG TAB PO (13:49)
[2023-01-05] MEDS: oxyCODONE 5 MG TAB PO ×2 (14:29→15:32)
--- NOTE | 2023-01-05 14:37 | W.PM.DSUDISC ---
Date of service: 01/05/23 Time of Service: 12:00 Discharge Plan Disposition Patient Disposition: Home Condition: Stable Discharge Details Reason For Visit: ureteroscopy Attending Provider: Salvador Erickson Primary Care Provider: Dodie Mendez Home Meds and New Rx's Prescriptions: Continued ibuprofen 200 mg Tablet 400 mg PO Q6H PRN prochlorperazine maleate [Compazine] 10 mg tablet 10 mg PO Q6H PRNQty: 20 0RF acetaminophen 500 mg Tablet 500 mg PO PRN PRN Discontinued oxycodone 5 mg tablet 5 mg PO BID PRN (Reason: severe pain) Qty: 10 0RF No Action oxycodone 5 mg tablet 5 - 10 mg PO Q6H PRN MDD 8 PRN (Reason: severe pain) Qty: 25 0RF oxycodone 5 mg tablet 5 mg PO Q4H PRNQty: 12 0RF Discharge Instructions Additional Instructions: no need to strain urine followup next week for stent removal (tell my office pt has string on stent) followup 6 weeks with renal US Stand Alone Forms: Anesthesia Discharge Inst., [facility] ([facility]) Referrals: Salvador Erickson MD [ [facility] STAFF PHYSICIAN] - 01/10/23 9:30 am Activity:: Activity as Tolerated Shower/Bathe:: 24 hours Diet:: As Tolerated Discharge Orders Discharge Orders: Discharge Order (Routine); Ordered 01/05/23 Ordered By: Salvador Erickson Discharge Data Discharge Date/Time-TO BE ENTERED AT DEPARTURE: 01/05/23 16:45 DS: Diagnosis Discharge Diagnosis (1) Ureteral stone with hydronephrosis: Status: Acute
[2023-01-05] MEDS: Tamsulosin 0.4 MG CAPCR PO (14:57)
[2023-01-11 23:34] LABS: Source: Right Ureter
== END 2023-01-05 16:45 | disposition home or self-care (01) ==
PROVIDERS: PCP Nurse Practitioner Family; Visit Provider Urology
PROC: (CPT 52352; principal; 2023-01-05 12:00)
DX: N13.2 Hydronephrosis with renal and ureteral calculous obstruction (principal)
CPT/HCPCS: 52352; 52332; 74420; 82365; J0131; J1100; J1170; J1885; J2405; J3475; Q9967

== ENCOUNTER 2023-01-05 19:36 | Emergency (ER) | payer OTHER, SELFPAY ==
[2023-01-05 19:41] VITALS: BP 133/84; PULSE 72; RESP 16; TEMP 36.4; O2SAT 97
--- NOTE | 2023-01-05 19:45 | DI.CT_ITS ---
Exam(s) CT RENAL COLIC WO EXAM: CT RENAL COLIC WO CLINICAL HISTORY: right flank pain s/p stent placed today. TECHNIQUE: Imaging Protocol: Axial computed tomography images with coronal and sagittal reformatted images were created and reviewed. CONTRAST MATERIAL: Noncontrast COMPARISON: CT CT RENAL COLIC WO from 01/01/2023 XR RETROGRADE IN OR from 01/05/2023 FINDINGS: ABDOMEN: Lung Bases: Normal where visualized. Liver: Normal attenuation. No measurable mass. Gallbladder and biliary tract: No radiodense calculus or dilation. Pancreas: Normal density, no calcifications or inflammatory process. Spleen: Normal. Kidneys: Normal size, contour and axis. Tiny nonobstructing stones bilateral kidneys. A right urete ral stent is now in place. The upper portion of the stent is coiled in the upper pole as well as christiano al pelvis. Mild dilatation of the right renal pelvis. The lower portion of the stent extends to lev el of the ureteral vesicle junction but does not enter into the bladder. The previously noted stone in the mid right ureter is not visible.. No masses seen. No perinephric collections. Adrenal glands: No masses seen. Abdominal Aorta: Abdominal portion non-dilated. Soft tissues: Unremarkable. PELVIS: Bladder: Symmetric distention, no gross wall thickening. No evidence of stones.No visible mass. Bowel: No obstruction or bowel wall thickening. Reproductive: Peritoneal cavity: No ascites, collection or mesenteric inflammatory response. Bones: Unremarkable for age.. IMPRESSION: Upper portion of right ureteral stent shows several coils in the upper pole collecting system and rig ht renal pelvis. Distal portion of the stent is not extend into urinary bladder. Previously noted m id ureteral stone no longer visible. RADIATION DOSE DELIVERED: 716.66mGy.cm Total DLP DATA REPOSITORY: All CT scans at this facility are submitted to the National Radiology Data Registry (NRDR) Dose Index Registry (DIR) with the [employer] ([employer]). RADIATION OPTIMIZATION: All CT scans at this facility use at least one of these dose optimization te chniques: automated exposure control; mA and/or kV adjustment per patient size (includes targeted exa ms where dose is matched to clinical indication); or iterative reconstruction.
--- NOTE | 2023-01-05 19:50 | ED.GENADUL_ITS ---
Discharge Plan Disposition Patient Disposition: Home Condition: Stable Discharge Details Clinical Impression: S/P ureteral stent placement, Right flank pain Primary Care Provider: Dodie Mendez ED Provider: Mc Ziegler Home Meds and New Rx's Prescriptions: New ciprofloxacin HCl 500 mg tablet 500 mg PO BID Qty: 14 0RF oxycodone 5 mg tablet 5 mg PO Q4H PRNQty: 12 0RF Continued oxycodone 5 mg tablet 5 - 10 mg PO Q6H PRN MDD 8 PRN (Reason: severe pain) Qty: 25 0RF tamsulosin [Flomax] 0.4 mg capsule 0.4 mg PO DAILY Qty: 7 0RF ibuprofen 200 mg Tablet 400 mg PO Q6H PRN prochlorperazine maleate [Compazine] 10 mg tablet 10 mg PO Q6H PRNQty: 20 0RF acetaminophen 500 mg Tablet 500 mg PO PRN PRN Discharge Instructions Additional Instructions: your blood work did not show concerning findings, your urine test showed a possible urinary infection your cat scan did not show migration of your stent follow up as scheduled with urology if you feel more ill, have fevers or persistent vomiting return to the emergency department you can take 600mg ibuprofen and 1000mg tylenol every 6 hours. Medical Decision Making 27 yo male who had a ureteral stent and stone removal earlier today on the right side comes in with worsening right lower abdomen and back pain since his procedure earlier along with n/v. Denies fevers, chills, chest pain. HE arrives visible in pain and holding his right lower oblique. He has a soft nondistended abdomen, mild pain in the rlq without guarding or rebound, no testicle swelling or tenderness, no cva tenderness. Suspect pain related to the stent, will obtain cbc, cmp, lipase and ct to evaluate for possible stent migration and less likely other pathology such as appendicitis. pt's pain significantly improved, blood work unremarkable, ua is positive for nitrites,he received a dose of cipro prior to the procedure, will start him on bid of this until he sees urology next week, no fevers or other symptoms to suggest sepsis. CT shows in tact stent, no perforation, no perirenal inflammatory changes. small focus of air in the urinary bladder may be postprecedural. HE is stable for d/c, will have him take nsaids routinely and tylenol as well. Return precautions given Differential Diagnosis Differential Diagnosis: stent migration, nephrolithiasis Medical Records Medical records reviewed: Yes I reviewed the patient's medical records. Imaging Data Radiologic Study: Attestation: I personally reviewed and interpreted this imaging study as follows: Imaging: CT Scan Radiologist's impression: IMPRESSION: 1. A right sided double-J ureteral stent is noted. This has redundant loops in the right renal upper pole calyx and renal pelvis. The distal aspect of the stent falls short of the urinary bladder lumen. The distal tip is at the level of the ureterovesicular junction. 2. No inflammatory changes within the perirenal space bilaterally. 3. Bilateral punctate multifocal renal calculi. 4. Small focus of air in the urinary bladder may be postprocedural. Can not exclude infection Lab Data Lab results reviewed: Yes I reviewed the patient's lab results. HPI General Mode of arrival: ambulatory . Date/Time Provider Initiated Documentation: 01/05/23 19:37 . Limitations to Documentation: no limitations . Information obtained by: patient . History of Present Illness 27 year old M presents to the emergency department with the chief complaint of right flank pain, described as severe, Patient started experiencing this hour(s) (5) and it has been constant. No relieving factors improve symptom(s), No exacerbating factors reported . Patient notes nausea/vomiting; denies fever/chills. Related Data Home Medications Medication Instructions Recorded Confirmed ibuprofen 200 mg tablet 400 mg PO Q6H PRN 09/21/19 01/05/23 acetaminophen 500 mg tablet 500 mg PO PRN PRN 12/17/19 01/05/23 ciprofloxacin HCl 500 mg tablet 500 mg PO BID #14 tabs 01/05/23 oxycodone 5 mg tablet 5 - 10 mg PO Q6H PRN PRN severe 01/05/23 01/05/23 pain #25 tabs oxycodone 5 mg tablet 5 mg PO Q4H PRN #12 tabs 01/05/23 prochlorperazine maleate 10 mg 10 mg PO Q6H PRN #20 tabs 01/05/23 01/05/23 tablet (Compazine) tamsulosin 0.4 mg capsule (Flomax) 0.4 mg PO DAILY #7 caps 01/05/23 01/05/23 Previous Rx's Medication Instructions Recorded ciprofloxacin HCl 500 mg tablet 500 mg PO BID #14 tabs 01/05/23 oxycodone 5 mg tablet 5 - 10 mg PO Q6H PRN PRN severe 01/05/23 pain #25 tabs oxycodone 5 mg tablet 5 mg PO Q4H PRN #12 tabs 01/05/23 prochlorperazine maleate 10 mg 10 mg PO Q6H PRN #20 tabs 01/05/23 tablet (Compazine) tamsulosin 0.4 mg capsule (Flomax) 0.4 mg PO DAILY #7 caps 01/05/23 Allergies Allergy/AdvReac Type Severity Reaction Status Date / Time Penicillins Allergy Unknown Other (See Unverified 01/05/23 19:46 Comment) General Stated Complaint: Abd Prob CAITLIN: 3 Review of Systems All systems reviewed & are unremarkable except as noted in HPI and below Constitutional Constitutional: Denies chills, Denies fever(s) and Denies weakness Cardiovascular Cardiovascular: Denies chest pain and Denies dyspnea Respiratory Respiratory: Denies cough and Denies dyspnea Musculoskeletal Musculoskeletal: Denies joint swelling Neurologic Neurologic: Denies weakness PFSH All Active Problems (Updated 01/05/23 @ 21:16 by Mc Ziegler MD) S/P ureteral stent placement (Acute) Right flank pain (Acute) Influenza B (Acute) Ureteral calculus, right (Acute) Ureteral stone with hydronephrosis (Acute) Medical History (Updated 01/05/23 @ 21:16 by Mc Ziegler MD) Kidney stones Social History Smoking/Tobacco Use Status: Former Tobacco Use Quit Date: 10/29/19 Smoking risk assessment performed?: Yes Alcohol Intake: former Drug use: Daily Substance use type: marijuana Do you feel safe at home: Yes Do you feel safe in your relationship?: Yes Exam Const Orientation: alert HENMT Head: normal to inspection Ears: external ears normal General nose exam: external nose normal Mouth: moist mucous membranes Eyes General: appearance normal, both eyes and all related structures Neck Neck: normal visual inspection Resp Effort & Inspection: normal respiratory effort and able to speak in complete sentences Cardio Rate: regular rate GI Palpation: soft and tender Back/Spine/Pelvis Back: no CVA tenderness Skin General skin exam: no rashes or lesions noted Neuro General: patient alert and patient oriented x3 Extrem General: normal to inspection Psych Mental Status: mental status grossly normal Course Vital Signs Vital signs: Vital Signs Temperature 36.4 C 01/05/23 19:41 Pulse 72 01/05/23 19:41 Respiratory Rate 16 01/05/23 19:41 Blood Pressure 133/84 01/05/23 19:41 Pulse Oximetry 97 01/05/23 19:41 Temperature 36.4 C 01/05/23 19:41 Temperature Source Temporal Artery Scan 01/05/23 19:41 Pulse 72 01/05/23 19:41 Respiratory Rate 16 01/05/23 19:41 Respiratory Effort Normal 01/05/23 19:41 Blood Pressure 133/84 01/05/23 19:41 Blood Pressure Position Sitting 01/05/23 19:41 Pulse Oximetry 97 01/05/23 19:41 Oxygen Delivery Method Room Air 01/05/23 19:41 Oxygen Flow Rate 0 01/05/23 19:41 Pain Level 10 01/05/23 19:41
[2023-01-05] MEDS: Normal Saline 1,000 ML 1000 ML IV (19:55)
[2023-01-05 19:59] LABS: Abs Immature Grans 0.02 10^3/uL (0.0-0.06); Absolute Basophil Count 0.01 10^3/uL (0.0-0.2); Absolute Lymphocyte Count 0.61 10^3/uL (1.2-3.4); Absolute Monocyte Count 0.02 10^3/uL (0.1-0.8); Absolute Neutrophil Count 7.09 10^3/uL (1.2-6.7); Basophils % 0.1; HCT 40.6 % (40.0-50.0); HGB 13.8 g/dL (13.5-17.5); Immature Grans % 0.3; Lymphocytes % 7.9; MCH 29.9 pg (27.0-33.0); MCV 88 fL (80-95); MPV 10.4 fL (8.0-11.0); Monocytes % 0.3; Neutrophils % 91.4; Platelet Count 342 10^3/uL (130-400); RBC 4.62 10^6/uL (4.36-5.78); RDW 11.4 % (11.8-14.1); RDW-SD 36.4 fL; WBC 7.75 10^3/uL (4.4-10.8)
[2023-01-05] MEDS: Ketorolac 15 MG/ML VIAL IVP (20:00)
[2023-01-05] MEDS: Droperidol 5 MG/2 ML VIAL IVP (20:05)
[2023-01-05 20:18] LABS: ALT 33 U/L (16-63); AST 29 U/L (15-37); Albumin 4.1 g/dL (3.4-5.0); Alkaline Phosphatase 81 U/L (46-116); Anion Gap 11.1 mmol/L (3-11); BUN 13 mg/dL (7-18); Bilirubin, Total 0.4 mg/dL (0.2-1.0); CO2 25.9 mmol/L (21.0-32.0); CREATININE 1.1 mg/dL (0.70-1.30); Chloride 103 mmol/L (98-107); Estimated GFR 93.19 (mL/min/1.73m2); Glucose 145 mg/dL (74-106); Lipase 25 U/L (16-77); Potassium 3.9 mmol/L (3.5-5.1); Sodium 140 mmol/L (136-145); Total Protein 7.7 g/dL (6.4-8.2)
[2023-01-05 20:53] LABS: Bilirubin Small (Negative); Blood Large (Negative); Clarity Cloudy (Clear); Glucose 100 mg/dL (Negative); Ketones 80 mg/dL (Negative); Leukocyte Esterase Negative (Negative); Nitrite Positive (Negative); Specific Gravity >= 1.030 (1.005-1.025)
[2023-01-05 21:02] LABS: C & S Indicated? Yes; RBC >50 HPF (0-2)
--- NOTE | 2023-01-05 21:04 | DI.VRAD_ITS ---
PROCEDURE INFORMATION: Exam: CT Abdomen And Pelvis Without Contrast Exam date and time: 01/05/2023 8:18 PM Age: 27 years old Clinical indication: Abdominal pain; Flank; Right; Prior surgery; Surgery date: Post-operative (0-2 days); Surgery type: RT stent placed today TECHNIQUE: Imaging protocol: Computed tomography of the abdomen and pelvis without contrast. COMPARISON: CT RENAL COLIC WO CONTRAST 04/03/2017 9:54 PM FINDINGS: Lungs: Lung bases are clear. Pleural spaces: No pleural effusion. Heart: Normal heart size. No pericardial effusion. No coronary artery atherosclerotic calcium. Liver: Normal. No mass. Gallbladder and bile ducts: Normal. No calcified stones. No ductal dilation. Pancreas: Normal. No ductal dilation. Spleen: Normal. No splenomegaly. Adrenal glands: Normal. No mass. Kidneys and ureters: Left kidney with punctate scattered nonobstructive renal calculi measuring 1-2 mm. No left renal inflammation. Small right renal calculi are noted within multiple calices. These measure 1-2 mm. There is a right-sided ureteral stent extending from the renal pelvis to the distal ureter. The distal aspect of the stent does not enter the urinary bladder. There is redundant stent coiled within the right renal pelvis. Stomach and bowel: Unremarkable. No obstruction. No mucosal thickening. Appendix: A non inflamed appendix is identified. Series 2, images 85-81. Intraperitoneal space: No free fluid in the abdomen or pelvis. No free air. Vasculature: Unremarkable. No abdominal aortic aneurysm. Lymph nodes: Unremarkable. No enlarged lymph nodes. Urinary bladder: Small amount of air in the urinary bladder may be a reflection of the recent cystoscopic procedure. Can not exclude cystitis. Reproductive: Unremarkable as visualized. Bones/joints: Unremarkable. No acute fracture. Soft tissues: Minor fat containing umbilical hernia. No acute features. IMPRESSION: 1. A right sided double-J ureteral stent is noted. This has redundant loops in the right renal upper pole calyx and renal pelvis. The distal aspect of the stent falls short of the urinary bladder lumen. The distal tip is at the level of the ureterovesicular junction. 2. No inflammatory changes within the perirenal space bilaterally. 3. Bilateral punctate multifocal renal calculi. 4. Small focus of air in the urinary bladder may be postprocedural. Can not exclude infection. Dictated and Authenticated by: James Price MD. Ordering:MANI Bentley MD
[2023-01-05] MEDS: Ciprofloxacin 500 MG TAB PO (21:19)
[2023-01-05] MEDS: MORPHine 4 MG/ML SYR IVP (21:20)
[2023-01-05 21:33] VITALS: BP 128/72; PULSE 68; RESP 16; O2SAT 96
== END 2023-01-05 21:35 | disposition home or self-care (01) ==
PROVIDERS: Emergency Provider Emergency Medicine; PCP Nurse Practitioner Family
DX: R10.31 Right lower quadrant pain (principal); Z98.890 Other specified postprocedural states; R82.998 Other abnormal findings in urine
CPT/HCPCS: 36415; 80053; 83690; 96361; 96374; 96375; 99284; 74176; 81003; 81015; 83735; 85025; 87086; J1790; J1885; J2270

== ENCOUNTER 2024-12-09 22:58 | Emergency (ER) | payer BC, SELFPAY ==
[2024-12-09 23:09] VITALS: BP 140/77; PULSE 59; RESP 18; TEMP 36.4; O2SAT 100
--- NOTE | 2024-12-09 23:23 | W.ED.GENAD ---
Discharge Plan Disposition Patient Disposition: Home Condition: Good Discharge Details Clinical Impression: Hordeolum internum left lower eyelid Primary Care Provider: Dodie Mendez ED Provider: Nikolay Cunningham Home Meds and New Rx's Prescriptions: No Action ibuprofen 200 mg Tablet 400 mg PO Q6H PRN acetaminophen 500 mg Tablet 500 mg PO PRN PRN doxycycline hyclate 100 mg tablet 100 mg PO BID Discharge Instructions Instructions: Stye Additional Instructions: At this time you have a small blocked gland on the lower lid of your left eye. Please apply the Polytrim eyedrops, 2 drops every 3-4 hours. Please use a warm washcloth with small amount of tear free baby shampoo on it to gently rub and massage the eye to help these clogged ducts drain. If you notice that the swelling worsens or you develop any significant pain or fever, please return immediately for reassessment. If you notice any worsening of your symptoms, or any new symptoms such as vomiting, diarrhea, fever, chills, shortness of breath, chest pain, numbness, weakness, or fainting , please return immediately to the emergency department for reevaluation. Please follow up with your primary care provider as soon as possible for reassessment and reevaluation. As always, it was a pleasure participating in your medical care today. Referrals: [facility] [Outside] Dodie Mendez [Primary Care Provider] - [facility] General Date/Time Provider Initiated Documentation: 12/09/24 23:10. [facility] Narrative: This is a pleasant 29-year-old male with no significant past medical history who presents today for left eye discomfort. Patient was recently diagnosed with otitis media in his right ear in the last 24 hours, however this evening he noticed some mild pain and discomfort in the left lower eyelid. He came to the ER for further evaluation. He denies any falls or trauma. He denies any welding or grinding or trauma to the eye. He denies any pain on the eyeball itself, but specifically instead the left lower lid. No visual changes. No other complaints at this time. He was prescribed doxycycline for his otitis media secondary to his penicillin allergy. He has been taking Motrin for pain. Related Data Home Medications ?Medication ?Instructions ?Recorded ?Confirmed ibuprofen 200 mg tablet 400 mg PO Q6H PRN 11/24/19 02/11/25 acetaminophen 500 mg tablet 500 mg PO PRN PRN 12/17/19 12/09/24 doxycycline hyclate 100 mg tablet 100 mg PO BID 12/09/24 12/09/24 Allergies Allergy/AdvReac Type Severity Reaction Status Date / Time Penicillins Allergy Unknown Other (See Verified 12/09/24 23:07 Comment) General Stated Complaint: EyeProblem CAITLIN: 4 Exam Narrative Exam Narrative: 1.Const: Well-nourished, Well-developed, appearing stated age 2.Eyes: PERRL, no conjunctival injection. Right eye unremarkable, left eyeball unremarkable with no tenderness to the eyeball itself, or evidence of abrasion. Left upper lid unremarkable, left lower lid demonstrates very minimal swelling, eversion of the lid demonstrates evidence of a hordeolum internum. No hordeolum externum. No tarsal plate tenderness. No periorbital swelling. Right tympanic membrane is erythematous bulging with purulence, left tympanic membrane is sousa and pearly. 3.ENT: Atraumatic external nose and ears. Moist MM. Neck: Symmetric, trachea midline, No thyromegaly. 4.CVS: +S1/S2, Peripheral pulses 2+ and equal in all extremities. Brisk capillary refill in all extremities. 5.RESP: Unlabored respiratory effort. Clear to auscultation bilaterally. No wheezes rales or rhonchi 6.GI: Soft, Nontender/Nondistended, No hepatosplenomegaly. No guarding or rebound. 7.MSK: Normocephalic/Atraumatic, Extremities w/o deformity or ttp No cyanosis or clubbing, Normal movement of all extremities 8.Skin: Warm, Dry. No rashes or lesions. 9.Neuro: adjustment clerk II-XII grossly intact. Sensation grossly intact, no focal neurologic deficits. 10.Psych: (AAO) x3. Appropriate mood and affect Course Vital Signs Vital signs: Vital Signs Temperature 36.4 C L 12/09/24 23:09 Pulse 59 L 12/09/24 23:09 Respiratory Rate 18 12/09/24 23:09 Blood Pressure 140/77 12/09/24 23:09 Pulse Oximetry 100 12/09/24 23:09 Temperature 36.4 C L 12/09/24 23:09 Temperature Source Temporal Artery Scan 12/09/24 23:09 Pulse 59 L 12/09/24 23:09 Respiratory Rate 18 12/09/24 23:09 Blood Pressure 140/77 12/09/24 23:09 Blood Pressure Position Sitting 12/09/24 23:09 Pulse Oximetry 100 12/09/24 23:09 Oxygen Delivery Method Room Air 12/09/24 23:09 Oxygen Flow Rate 0 12/09/24 23:09 Pain Level 5 12/09/24 23:13 Medical Decision Making This is a pleasant 29-year-old male with no significant past medical history who presents today for left eye discomfort. Patient was recently diagnosed with otitis media in his right ear in the last 24 hours, however this evening he noticed some mild pain and discomfort in the left lower eyelid. He came to the ER for further evaluation. He denies any falls or trauma. He denies any welding or grinding or trauma to the eye. He denies any pain on the eyeball itself, but specifically instead the left lower lid. No visual changes. No other complaints at this time. He was prescribed doxycycline for his otitis media secondary to his penicillin allergy. He has been taking Motrin for pain. left eyeball unremarkable with no tenderness to the eyeball itself, or evidence of abrasion. Left upper lid unremarkable, left lower lid demonstrates very minimal swelling, eversion of the lid demonstrates evidence of a hordeolum internum. No hordeolum externum. No tarsal plate tenderness. No periorbital swelling. Right tympanic membrane is erythematous bulging with purulence, left tympanic membrane is sousa and pearly. Symptoms consistent with hordeolum internum, no evidence of significant septal cellulitis or preseptal cellulitis at this time. I did attempt to deroofed the lesion, however it is notably small at this stage and it was unable to be removed. Will recommend warm compresses, [employer] tear free baby soap gently wiped on that area at home, we will prescribe polymyxin drops for topical application, and continuation of doxycycline. Discussed red flags that would represent pre and postseptal cellulitis and the patient understands. He will return if the symptoms develop. Discussed red flags for which to return. I have extensively reviewed the treatment plan and discharge instructions with the patient. I have addressed all patient concerns at this time. The patient was made aware of what symptoms to monitor for that would warrant a return to the emergency department. Discussed the plan with the patient, they demonstrate verbal understanding and agreement with our assessment and plan at this time. The documentation in this chart was dictated using [employer] dictation software. Please excuse any dictation errors. Quality:SDOH Health Related Social Needs: No Data to Display PFSH All Active Problems (Updated 12/09/24 @ 23:26 by Nikolay Cunningham DO) Hordeolum internum left lower eyelid (Acute) Influenza B (Acute) Medical History Kidney stones Social History Smoking/Tobacco Use Status: Former Tobacco Use Quit Date: 10/29/19 Smoking risk assessment performed?: Yes Alcohol Intake: former Drug use: Daily Substance use type: marijuana Do you feel safe at home: Yes Do you feel safe in your relationship?: Yes
[2024-12-09] MEDS: Polymyxin B/Trimethoprim Ophth Soln 10 ML BTL OS (23:32)
== END 2024-12-09 23:34 | disposition home or self-care (01) ==
LOC: ER 23:48
PROVIDERS: Emergency Provider Student in an Organized Health Care Education/Training Program; PCP Nurse Practitioner Family
DX: H00.025 Hordeolum internum left lower eyelid (principal)
CPT/HCPCS: 99283